=== PATIENT | male | born 1965 | race Caucasian/White ===

== ENCOUNTER 2017-04-20 19:16 | Emergency (ER) | payer MEDICARE, MEDICAID ==
[2017-04-20 20:08] VITALS: BP 158/108
[2017-04-20] MEDS ORDERED: Bacitracin Oint 1 GM U/D Packet TOP ONE (20:56)
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
== END 2017-04-20 21:45 | disposition home or self-care (01) ==
LOC: JP.ED 19:16
DX: H61.23 Impacted cerumen, bilateral (principal); S50.811A Abrasion of right forearm, initial encounter; I25.2 Old myocardial infarction; I10 Essential (primary) hypertension; I25.10 Atherosclerotic heart disease of native coronary artery without angina pectoris; E78.00 Pure hypercholesterolemia, unspecified; J45.909 Unspecified asthma, uncomplicated; Z95.5 Presence of coronary angioplasty implant and graft; Z79.82 Long term (current) use of aspirin; Z79.899 Other long term (current) drug therapy; X58.XXXA Exposure to other specified factors, initial encounter
CPT/HCPCS: 69209; 99283-25

== ENCOUNTER 2017-06-17 22:00 | Emergency (ER) | payer MEDICARE, MEDICAID ==
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
[2017-06-18 00:06] VITALS: BP 146/99
--- NOTE | 2017-06-19 09:13 | CR ---
Chest 1V Frontal HISTORY: pain COMPARISON: 01/10/2016 FINDINGS: Portable chest, 2216 hours. Lungs appear clear and normally aerated. Cardiomediastinal silhouette is within normal limits. No vas cular redistribution or pleural fluid can be seen. Bony structures and soft tissues are unremarkable. IMPRESSION: No acute chest abnormality or significant interval change is identified.
== END 2017-06-18 00:07 | disposition home or self-care (01) ==
LOC: JP.ED 22:00
DX: R07.89 Other chest pain (principal); I10 Essential (primary) hypertension; I25.2 Old myocardial infarction; I25.10 Atherosclerotic heart disease of native coronary artery without angina pectoris; E78.00 Pure hypercholesterolemia, unspecified; Z95.5 Presence of coronary angioplasty implant and graft; J45.909 Unspecified asthma, uncomplicated; Z79.82 Long term (current) use of aspirin
CPT/HCPCS: 36415; 71010; 71010-26; 80053; 84484; 85025; 93005; 93010; 99283; 99285-25

== ENCOUNTER 2017-11-29 00:48 | Emergency (ER) | payer MEDICARE, MEDICAID ==
[2017-11-29 01:31] VITALS: BP 161/83
[2017-11-29] MEDS ORDERED: Ketorolac 60 MG/2 ML SDV IM ONE (02:35)
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
--- NOTE | 2017-11-29 10:08 | CR ---
Chest 2V INDICATION: Left chest wall pain FINDINGS: Comparison 06/17/2017. No change. Negative chest.
== END 2017-11-29 03:27 | disposition home or self-care (01) ==
LOC: JP.ED 00:48
DX: R07.89 Other chest pain (principal); I25.2 Old myocardial infarction; Z87.891 Personal history of nicotine dependence; J45.909 Unspecified asthma, uncomplicated
CPT/HCPCS: 71046; 96372; 99283; 99285; J1885

== ENCOUNTER 2018-01-10 21:17 | Emergency (ER) | payer MEDICARE, MEDICAID ==
[2018-01-10 21:57] VITALS: BP 150/88
[2018-01-10] MEDS ORDERED: Ketorolac 60 MG/2 ML SDV IM ONE (22:28)
--- NOTE | 2018-01-10 22:39 | EDM.PDOC ---
ED HPI GENERAL MEDICAL PROBLEM - General Chief Complaint: General Stated Complaint: RIGHT SHOULDER NUMBNESS AND GOES INTO THE FINGERS Time Seen by Provider: 01/10/18 22:12 Source of Information: Reports: Patient History Limitations: Reports: No Limitations - History of Present Illness INITIAL COMMENTS - FREE TEXT/NARRATIVE: left fingers with numbness and tingling. left shoulder pain for the past few days. worried he has a pinched nerve in his neck. was seen by Chiropractor in Monday and next appointment of Monday. denies chest pain, shortness of breath, fever, chills or any other symptoms. Onset: Gradual Duration: Day(s): Location: Reports: Upper Extremity, Left (left scapula) Quality: Reports: Ache Severity: Mild Improves with: Reports: Rest Worsens with: Reports: None Associated Symptoms: Reports: No Other Symptoms - Related Data Allergies Allergy/AdvReac Type Severity Reaction Status Date / Time No Known Allergies Allergy Verified 11/29/17 01:22 Home Meds: Home Meds Albuterol Sulfate [Proair Hfa] 2 puff IH Q4H PRN 12/01/14 [History] Albuterol [Proventil] 2.5 mg NEB Q2H PRN 12/01/14 [History] Fluticasone Propionate [Flovent HFA 220 MCG] 2 puff IH BID 12/01/14 [History] Aspirin [Eder Chewable Aspirin] 81 mg PO QAM 10/03/15 [History] Metoprolol Tartrate [Lopressor] 12.5 mg PO BID 02/24/16 [History] atorvaSTATin [Lipitor] 10 mg PO BEDTIME 02/24/16 [History] Nitroglycerin [Nitrostat] 0.4 mg SL ASDIRECTED PRN 01/10/18 [History] Past Medical History HEENT History: Reports: Impaired Vision Cardiovascular History: Reports: CAD, High Cholesterol, Hypertension, [place], Stents Respiratory History: Reports: Asthma Genitourinary History: Reports: Urinary Incontinence Musculoskeletal History: Reports: Fracture Other Musculoskeletal History: right knee pain Neurological History: Reports: Concussion, Head Trauma Dermatologic History: Reports: Cellulitis - Infectious Disease History Infectious Disease History: Reports: Shingles - Past Surgical History Cardiovascular Surgical History: Reports: Coronary Artery Stent Musculoskeletal Surgical History: Reports: Arthroscopic Knee, Other (See Below) Other Musculoskeletal Surgeries/Procedures:: right pointer finger Social & Family History - Family History Family Medical History: Unobtainable - Tobacco Use Smoking Status *Q: Never Smoker - Caffeine Use Caffeine Use: Reports: Coffee - Recreational Drug Use Recreational Drug Use: No - Living Situation & Occupation Living situation: Reports: with Family (lives with family in yard, has a camper stays in at night.) ED ROS GENERAL - Review of Systems Review Of Systems: See Below Constitutional: Reports: No Symptoms HEENT: Reports: No Symptoms Respiratory: Reports: No Symptoms Cardiovascular: Reports: No Symptoms, Palpitations GI/Abdominal: Reports: No Symptoms Musculoskeletal: Reports: Shoulder Pain (feels numb), Arm Pain (feels numb,pain resolves with repositioning of arms) Skin: Reports: No Symptoms Neurological: Reports: No Symptoms Psychiatric: Reports: No Symptoms Hematologic/Lymphatic: Reports: No Symptoms Immunologic: Reports: No Symptoms ED EXAM, GENERAL - Physical Exam Exam: See Below Exam Limited By: No Limitations General Appearance: Alert, WD/WN, No Apparent Distress Ears: Normal External Exam Nose: Normal Inspection Neck: Normal Inspection, Supple, Non-Tender. No: Full Range of Motion (mild neck stiffness) Respiratory/Chest: No Respiratory Distress, Lungs Clear, Normal Breath Sounds, No Accessory Muscle Use, Chest Non-Tender Cardiovascular: Regular Rate, Rhythm, No Edema, No Murmur Back Exam: Normal Inspection, Full Range of Motion, NT Extremities: Normal Inspection, Normal Range of Motion, Non-Tender, Normal Capillary Refill, No Pedal Edema Neurological: Alert, Oriented, Normal Cognition, Normal Gait, No Motor/Sensory Deficits Psychiatric: Normal Affect, Normal Mood Skin Exam: Warm, Dry, Intact, Normal Color, No Rash Lymphatic: No Adenopathy Course - Vital Signs Last Recorded V/S: Last Vital Signs Temp 36.6 C 01/10/18 22:04 Pulse 85 01/10/18 22:04 Resp 16 01/10/18 22:04 BP 150/88 H 01/10/18 22:04 Pulse Ox 94 L 01/10/18 22:04 - Orders/Labs/Meds Orders: Active Orders 24 hr Category Date Time Status Cervical Spine 2V or 3V [CR] Stat Exams 01/10/18 22:27 Ordered Meds: Medications Discontinued Medications Generic Name Dose Route Start Last Admin Trade Name Freq PRN Reason Stop Dose Admin Ketorolac Tromethamine 60 mg 01/10/18 22:28 Toradol IM 01/10/18 22:29 ONETIME ONE - Radiology Interpretation Free Text/Narrative:: C-spine; DJD noted with bone spurs. - Re-Assessments/Exams Free Text/Narrative Re-Assessment/Exam: 01/10/18 22:43 given Toradol 60mg IM xray of C-spine to rule out DJD Departure - Departure Time of Disposition: 22:49 Disposition: Home, Self-Care 01 Condition: Good Clinical Impression: Muscle strain, Degenerative joint disease of cervical spine - Discharge Information Instructions: Muscle Strain Referrals: Bony Bone MD [Primary Care Provider] - Care Plan Goals: muscle strain/ Degenerative joint disease of neck -Toradol 60 mg im given in ER -Naprosen 500mg in morning and evening with food for 2 days, then as needed two times a day -Flexeril 10mg every 8 hours as needed for muscle spasm follow up with Primary Care or Chiropractor for recheck if not improved or symptoms worsen. - Problem List & Annotations (1) Muscle strain SNOMED Code(s): 08042047 Code(s): T14.8XXA - OTHER INJURY OF UNSPECIFIED BODY REGION, INITIAL ENCOUNTER Status: Acute Priority: Medium Current Visit: Yes - Problem List Review Problem List Initiated/Reviewed/Updated: Yes - My Orders Last 24 Hours: My Active Orders 01/10/18 22:27 Cervical Spine 2V or 3V [CR] Stat - Assessment/Plan Last 24 Hours: My Active Orders 01/10/18 22:27 Cervical Spine 2V or 3V [CR] Stat Plan: muscle strain/ degenerative joint disease of neck -Toradol 60 mg im given in ER -Naprosen 500mg in morning and evening with food for 2 days, then as needed two times a day -Flexeril 10mg every 8 hours as needed for muscle spasm follow up with Primary Care or Chiropractor for recheck if not improved or symptoms worsen.
--- NOTE | 2018-01-11 09:14 | CR ---
Cervical Spine 2V or 3V INDICATION: left shoulder and fingers numbness COMPARISON: 01/18/2011 FINDINGS: 3 views. Degenerative disc disease lower cervical spine increased slightly. No compression deformities or subluxations. No facet arthropathy. Overall alignment is anatomic. No prevertebral so ft tissue swelling. If symptoms persist, consider MRI.
== END 2018-01-10 23:05 | disposition home or self-care (01) ==
LOC: JP.ED 21:17
DX: M50.30 Other cervical disc degeneration, unspecified cervical region (principal); T14.8XXA Other injury of unspecified body region, initial encounter; I10 Essential (primary) hypertension; Z79.82 Long term (current) use of aspirin; X58.XXXA Exposure to other specified factors, initial encounter
CPT/HCPCS: 72040; 96372; 99284; J1885

== ENCOUNTER 2019-04-25 19:29 | Emergency (ER) | payer MEDICARE, MEDICAID ==
[2019-04-25 19:56] VITALS: BP 138/72
[2019-04-25] MEDS ORDERED: Sulfamethoxazole/Trimethoprim 800-160 MG Tab PO ONE (19:59)
--- NOTE | 2019-04-25 20:02 | EDM.PDOC ---
ED HPI GENERAL MEDICAL PROBLEM - General Chief Complaint: Skin Complaint Stated Complaint: SORE ON RT ARM Time Seen by Provider: 04/25/19 19:45 Source of Information: Reports: Patient History Limitations: Reports: No Limitations - History of Present Illness INITIAL COMMENTS - FREE TEXT/NARRATIVE: 53-year-old male with a persistent lesion on the left lateral arm for the last 3 weeks. It's erythematous, slightly painful and occasionally draining. He just got off work so came in to have it checked. No other lesions elsewhere, no other symptoms. Onset: Gradual Duration: Week(s): (3 weeks) Location: Reports: Upper Extremity, Left Associated Symptoms: Reports: No Other Symptoms Left upper Arm Pain Score (Numeric/FACES): 4 - Related Data Allergies Allergy/AdvReac Type Severity Reaction Status Date / Time No Known Allergies Allergy Verified 04/25/19 19:51 Home Meds: Home Meds Albuterol Sulfate [Proair Hfa] 2 puff IH Q4H PRN 12/01/14 [History] Albuterol [Proventil] 2.5 mg NEB Q2H PRN 12/01/14 [History] Fluticasone Propionate [Flovent HFA 220 MCG] 2 puff IH BID 12/01/14 [History] Aspirin [Eder Chewable Aspirin] 81 mg PO QAM 10/03/15 [History] Metoprolol Tartrate [Lopressor] 12.5 mg PO BID 02/24/16 [History] atorvaSTATin [Lipitor] 10 mg PO BEDTIME 02/24/16 [History] Nitroglycerin [Nitrostat] 0.4 mg SL ASDIRECTED PRN 01/10/18 [History] Codeine Phosphate/Guaifenesin [Guaifen-Codeine 100-10 mg/5 ml] 10 ml PO Q4H PRN 04/09/19 [History] Past Medical History HEENT History: Reports: Hard of Hearing, Impaired Vision 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 Cardiovascular History: Reports: CAD, High Cholesterol, Hypertension, [place], Stents Respiratory History: Reports: Asthma Genitourinary History: Reports: Urinary Incontinence Musculoskeletal History: Reports: Back Pain, Chronic, Fracture Other Musculoskeletal History: right knee pain Neurological History: Reports: Concussion, Head Trauma Dermatologic History: Reports: Cellulitis Other Dermatologic History: right ear red and swollen - Infectious Disease History Infectious Disease History: Reports: Chicken Pox - Past Surgical History Head Surgeries/Procedures: Reports: None HEENT Surgical History: Reports: None Cardiovascular Surgical History: Reports: Coronary Artery Stent Respiratory Surgical History: Reports: None Male Surgical History: Reports: None Neurological Surgical History: Reports: None Musculoskeletal Surgical History: Reports: Arthroscopic Knee, Other (See Below) Other Musculoskeletal Surgeries/Procedures:: right pointer finger Social & Family History - Family History Family Medical History: Unobtainable - Tobacco Use Smoking Status *Q: Never Smoker Second Hand Smoke Exposure: No - Caffeine Use Caffeine Use: Reports: None - Recreational Drug Use Recreational Drug Use: No - Living Situation & Occupation Living situation: Reports: with Family (lives with family in yard, has a camper stays in at night.) ED ROS GENERAL - Review of Systems Review Of Systems: See Below Constitutional: Denies: Fever Respiratory: Reports: No Symptoms GI/Abdominal: Reports: No Symptoms : Reports: No Symptoms Neurological: Reports: No Symptoms ED EXAM, SKIN/RASH Exam: See Below Exam Limited By: No Limitations General Appearance: Alert, No Apparent Distress Head: Atraumatic Respiratory/Chest: No Respiratory Distress Extremities: Other (The left arm is examined and has patches of erythema with a central 2 cm shallow ulceration that is currently dry and not draining on the left anterior arm near the antecubital area. It is slightly tender to palpation but not warm.) Course - Vital Signs Last Recorded V/S: Last Vital Signs Temp 96.6 F 04/25/19 19:55 Pulse 88 04/25/19 19:55 Resp 14 04/25/19 19:55 BP 138/72 04/25/19 19:55 Pulse Ox 97 04/25/19 19:55 - Orders/Labs/Meds Meds: Medications Discontinued Medications Generic Name Dose Route Start Last Admin Trade Name Freq PRN Reason Stop Dose Admin Trimethoprim/Sulfamethoxazole 1 tab 04/25/19 19:59 04/25/19 20:07 Septra Ds PO 04/25/19 20:00 1 tab ONETIME ONE Administration - Re-Assessments/Exams Free Text/Narrative Re-Assessment/Exam: 04/25/19 20:01 This patient has a persistent inflamed lesion on the left arm that may be MRSA, there is nothing to culture at this time. He'll be placed on Bactrim DS twice a day for the next 10 days but needs to recheck in the clinic next week if not improving, a biopsy will be needed. Departure - Departure Time of Disposition: 20:32 Disposition: Home, Self-Care 01 Clinical Impression: Cellulitis Qualifiers: Site of cellulitis: extremity Site of cellulitis of extremity: upper extremity Laterality: left Qualified Code(s): L03.114 - Cellulitis of left upper limb - Discharge Information Instructions: Cellulitis, Adult Referrals: Bony Bone MD [Primary Care Provider] - Forms: ED Department Discharge Care Plan Goals: Fill prescription for the antibiotic and take twice daily for at least a week. Keep the wound clean and covered and recheck in the clinic next week if not improving.
== END 2019-04-25 20:36 | disposition home or self-care (01) ==
LOC: JP.ED 19:29
DX: L03.114 Cellulitis of left upper limb (principal); I10 Essential (primary) hypertension; I25.2 Old myocardial infarction; E78.00 Pure hypercholesterolemia, unspecified; J45.909 Unspecified asthma, uncomplicated; Z79.899 Other long term (current) drug therapy; Z79.82 Long term (current) use of aspirin
CPT/HCPCS: 99282; A9270

== ENCOUNTER 2019-06-26 14:26 | Day surgery (SDC) | payer MEDICARE, MEDICAID ==
[2019-06-26] MEDS ORDERED: Sodium Chloride 0.9% 1,000 ML IV SCH ×2 (15:15→23:59)
[2019-06-26] MEDS ORDERED: BISACODYL 5 MG PO ONE ×2 (16:00→20:00)
[2019-06-26] MEDS ORDERED: atorvaSTATin 10 MG Tab (PTOM) PO SCH (17:00)
[2019-06-26] MEDS ORDERED: Polyethylene Glycol 3350 Powder 119 GM Bottle PO ONE (17:00)
[2019-06-26] MEDS ORDERED: POLYETHYLENE GLYCOL 238 GM PO ONE (17:00)
[2019-06-26] MEDS: Metoprolol Tartrate 25 MG Tab (PTOM) PO SCH (21:46)
[2019-06-27] MEDS ORDERED: fentaNYL 100 MCG/2 ML SDV ONE (08:30)
[2019-06-27] MEDS ORDERED: Midazolam 1 MG/ML 2 ML SDV ONE (08:30)
[2019-06-27] MEDS ORDERED: Propofol 200 MG/20 ML SDV ONE ×2 (08:31→09:42)
[2019-06-27] MEDS: Metoprolol Tartrate 25 MG Tab (PTOM) PO SCH (08:36)
[2019-06-27] MEDS ORDERED: Aspirin 81 MG Tab.Chew PO SCH (09:00)
[2019-06-27] MEDS ORDERED: Lactated Ringers 1,000 ML ONE (09:45)
[2019-06-27 11:37] VITALS: BP 111/74; PULSE 72
--- NOTE | 2019-06-27 13:01 | OR ---
DATE OF PROCEDURE: 06/27/2019 SURGEON: Evan Irizarry MD PROCEDURE: Colonoscopy. FINDINGS: Sigmoid colon polyp, approximately 2 cm, completely removed using hot snare forceps. COMPLICATIONS: None. CHECK EMBOSSER: None. ANESTHESIA: MAC. PREOPERATIVE DIAGNOSIS: Screening colonoscopy. POSTOPERATIVE DIAGNOSIS: Screening colonoscopy. RISKS: Risks, benefits, alternatives, and limitations including, but not limited to infection, bleeding, and perforation were explained to the patient, who wished to proceed. PROCEDURE IN DETAIL: The patient was placed in left lateral decubitus position. Digital rectal exam was performed without abnormality. The scope was introduced and advanced atraumatically to the ileocecal valve. The scope was brought back through the ascending, transverse, descending colon, and retroflexed. At 22 cm, a sessile-type polypoid lesion was identified. This was approximately 2 cm in size. This was first elevated using Angelica ink to whit and elevate the flat-type polyp. This was removed using the snare. No bleeding was noted after removal. No abnormalities on retroflexion. This did require multiple passes with the snare due to its size. The ink was also used to tap to the contralateral side of the colon. The patient tolerated the procedure well. Evan Irizarry MD /[id number]
== END 2019-06-27 12:30 | disposition home or self-care (01) ==
LOC: JP.MS 14:26 → JP.SDS 14:26 → UNDOADMOB 14:26 → JP.MS 14:26 → EDSTATUS 06-27 09:00 → UNDODISOB 06-27 12:30 → JP.SDS 06-27 12:30
PROVIDERS: ATTEND Surgery
DX: Z12.11 Encounter for screening for malignant neoplasm of colon (principal); D12.5 Benign neoplasm of sigmoid colon; E78.5 Hyperlipidemia, unspecified; I25.2 Old myocardial infarction; G47.33 Obstructive sleep apnea (adult) (pediatric); Z95.5 Presence of coronary angioplasty implant and graft
CPT/HCPCS: 45381; 45385; A9270; J2250; J2704; J3010; J7030; J7120

== ENCOUNTER 2019-07-16 20:03 | Observation (INO) | payer MEDICARE, MEDICAID ==
[2019-07-16] MEDS ORDERED: Morphine 4 MG/ML Syringe IVPUSH ONE (20:23)
--- NOTE | 2019-07-16 20:23 | EDM.PDOC ---
ED HPI GENERAL MEDICAL PROBLEM - General Chief Complaint: Chest Pain Stated Complaint: [facility] Time Seen by Provider: 07/16/19 20:10 Source of Information: Reports: Patient, EMS, Old Records History Limitations: Reports: No Limitations - History of Present Illness INITIAL COMMENTS - FREE TEXT/NARRATIVE: 53 yo male with known CAD walked into his shed at home and developed chest pain , mild SOB and a couple of syncopal spells not associated with injury. He lives alone. EMS responded and gave him ASA and SL NTG for several doses that reduced , but did not eliminate his sx's. Here on arrival his pain is still 3/10. Says it feels like his pain when he had his cardiac events. Did not miss any of his meds. Onset: Today Onset Date: 07/16/19 Onset Time: 16:00 Duration: Hour(s): (4+), Improving (after NTG) Location: Reports: Chest Quality: Reports: Pressure Severity: Moderate Improves with: Reports: Medication (NTG) Worsens with: Reports: Other (unknown) Context: Reports: Other (see HPI) Associated Symptoms: Reports: Chest Pain, Shortness of Breath (minimal). Denies : Cough, Diaphoresis, Fever/Chills, Nausea/Vomiting Treatments IN HOME TUTOR: Reports: Aspirin, Nitroglycerin chest Pain Score (Numeric/FACES): 3 - Related Data Allergies Allergy/AdvReac Type Severity Reaction Status Date / Time No Known Allergies Allergy Verified 07/16/19 20:08 Home Meds: Home Meds Albuterol Sulfate [Proair Hfa] 2 puff IH Q4H PRN 12/01/14 [History] Albuterol [Proventil] 2.5 mg NEB Q2H PRN 12/01/14 [History] Fluticasone Propionate [Flovent HFA 220 MCG] 2 puff IH BID PRN 12/01/14 [History ] Aspirin [Eder Chewable Aspirin] 81 mg PO QAM 10/03/15 [History] Metoprolol Tartrate [Lopressor] 12.5 mg PO BID 02/24/16 [History] atorvaSTATin [Lipitor] 10 mg PO BEDTIME 02/24/16 [History] Nitroglycerin [Nitrostat] 0.4 mg SL ASDIRECTED PRN 01/10/18 [History] Codeine Phosphate/Guaifenesin [Guaifen-Codeine 100-10 mg/5 ml] 10 ml PO Q4H PRN 04/09/19 [History] Past Medical History HEENT History: Reports: Hard of Hearing, Impaired Vision 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 Cardiovascular History: Reports: CAD, High Cholesterol, Hypertension, [place], Stents Respiratory History: Reports: Asthma Genitourinary History: Reports: Urinary Incontinence Musculoskeletal History: Reports: Back Pain, Chronic, Fracture Other Musculoskeletal History: right knee pain Neurological History: Reports: Concussion, Head Trauma Dermatologic History: Reports: Cellulitis Other Dermatologic History: right ear red and swollen - Infectious Disease History Infectious Disease History: Reports: Chicken Pox - Past Surgical History Head Surgeries/Procedures: Reports: None HEENT Surgical History: Reports: None Cardiovascular Surgical History: Reports: Coronary Artery Stent Respiratory Surgical History: Reports: None Male Surgical History: Reports: None Neurological Surgical History: Reports: None Musculoskeletal Surgical History: Reports: Arthroscopic Knee, Other (See Below) Other Musculoskeletal Surgeries/Procedures:: right pointer finger Social & Family History - Family History Family Medical History: Noncontributory - Tobacco Use Smoking Status *Q: Never Smoker - Caffeine Use Caffeine Use: Reports: Coffee - Living Situation & Occupation Living situation: Reports: with Family (lives with family in yard, has a camper stays in at night.) ED ROS GENERAL - Review of Systems Review Of Systems: See Below Constitutional: Reports: No Symptoms HEENT: Reports: No Symptoms Respiratory: Reports: Shortness of Breath (mild). Denies: Wheezing, Pleuritic Chest Pain, Cough, Sputum, Hemoptysis Cardiovascular: Reports: Chest Pain, Lightheadedness, Syncope (x 2) Endocrine: Reports: No Symptoms GI/Abdominal: Reports: No Symptoms : Reports: No Symptoms Musculoskeletal: Reports: No Symptoms Skin: Reports: No Symptoms Neurological: Reports: No Symptoms Psychiatric: Reports: No Symptoms ED EXAM, GENERAL - Physical Exam Exam: See Below Exam Limited By: No Limitations General Appearance: Alert, WD/WN, No Apparent Distress Eye Exam: Bilateral Eye: Normal Inspection Ears: Normal External Exam, Normal Canal, Hearing Grossly Normal Ear Exam: Bilateral Ear: Auricle Normal, Canal Normal Nose: Normal Inspection, No Blood Throat/Mouth: Normal Inspection, Normal Lips, Normal Oropharynx, Normal Voice, No Airway Compromise Head: Atraumatic, Normocephalic Neck: Normal Inspection, Supple Respiratory/Chest: No Respiratory Distress, Lungs Clear, Normal Breath Sounds, No Accessory Muscle Use. No: Chest Non-Tender (chest mildly tender with palpation. ) Cardiovascular: Regular Rate, Rhythm, No Edema GI/Abdominal: Normal Bowel Sounds, Soft, Non-Tender, No Distention Extremities: Normal Inspection, Normal Range of Motion, Non-Tender, No Pedal Edema Neurological: Alert, Oriented, CN II-XII Intact, Normal Cognition, No Motor/ Sensory Deficits Psychiatric: Normal Affect, Normal Mood Skin Exam: Warm, Dry, Intact, Normal Color, No Rash EKG INTERPRETATION EKG Date: 07/16/19 Time: 21:00 Rhythm: NSR Rate (Beats/Min): 71 Welcome: Normal P-Wave: Present QRS: Normal ST-T: Normal QT: Normal Comparison: No Change Course - Vital Signs Last Recorded V/S: Last Vital Signs Temp 36.7 C 07/16/19 20:04 Pulse 89 07/16/19 22:43 Resp 16 07/16/19 20:04 BP 139/79 07/16/19 22:43 Pulse Ox 94 L 07/16/19 20:04 - Orders/Labs/Meds Orders: Active Orders 24 hr Category Date Time Status Cardiac Monitoring [RC] .As Directed Care 07/16/19 20:18 Active EKG Documentation Completion [RC] ASDIRECTED Care 07/16/19 20:18 Active EKG 12 Lead [EK] Routine Ther 07/16/19 20:18 Ordered Labs: Laboratory Tests 07/16/19 07/16/19 07/16/19 Range/Units 20:28 20:28 20:28 WBC 6.4 (4.5-11.0) K/uL RBC 4.68 (4.30-5.90) M/uL Hgb 13.1 (12.0-15.0) g/dL Hct 40.5 (40.0-54.0) % MCV 87 (80-98) fL MCH 28 (27-31) pg MCHC 32 (32-36) % Plt Count 319 (150-400) K/uL D-Dimer, Quantitative < 100 (0.0-400.0) ng/mL Sodium 143 (140-148) mmol/L Potassium 3.4 L (3.6-5.2) mmol/L Chloride 106 (100-108) mmol/L Carbon Dioxide 27 (21-32) mmol/L Anion Gap 13.4 (5.0-14.0) mmol/L BUN 8 (7-18) mg/dL Creatinine 0.9 (0.8-1.3) mg/dL Est Cr Clr Drug Dosing 106.58 mL/min Estimated GFR (MDRD) > 60 (>60) Glucose 119 H (74-106) mg/dL Calcium 9.0 (8.5-10.1) mg/dL Troponin I (0.000-0.056) ng/mL Urine Color (YELLOW) Urine Appearance (CLEAR) Urine pH (5.0-8.0) Ur Specific Early (1.008-1.030) Urine Protein (NEGATIVE) mg/dL Urine Glucose (UA) (NEGATIVE) mg/dL Urine Ketones (NEGATIVE) mg/dL Urine Occult Blood (NEGATIVE) Urine Nitrite (NEGATIVE) Urine Bilirubin (NEGATIVE) Urine Urobilinogen (0.2-1.0) EU/dL Ur Leukocyte Esterase (NEGATIVE) Urine RBC (0-5) Urine WBC (0-5) Ur Epithelial Cells Amorphous Sediment Urine Bacteria Urine Mucus 07/16/19 07/16/19 07/16/19 Range/Units 20:28 20:58 22:30 WBC (4.5-11.0) K/uL RBC (4.30-5.90) M/uL Hgb (12.0-15.0) g/dL Hct (40.0-54.0) % MCV (80-98) fL MCH (27-31) pg MCHC (32-36) % Plt Count (150-400) K/uL D-Dimer, Quantitative (0.0-400.0) ng/mL Sodium (140-148) mmol/L Potassium (3.6-5.2) mmol/L Chloride (100-108) mmol/L Carbon Dioxide (21-32) mmol/L Anion Gap (5.0-14.0) mmol/L BUN (7-18) mg/dL Creatinine (0.8-1.3) mg/dL Est Cr Clr Drug Dosing mL/min Estimated GFR (MDRD) (>60) Glucose (74-106) mg/dL Calcium (8.5-10.1) mg/dL Troponin I < 0.017 < 0.017 (0.000-0.056) ng/mL Urine Color Yellow (YELLOW) Urine Appearance Clear (CLEAR) Urine pH 6.5 (5.0-8.0) Ur Specific Early 1.010 (1.008-1.030) Urine Protein Negative (NEGATIVE) mg/dL Urine Glucose (UA) Negative (NEGATIVE) mg/dL Urine Ketones Negative (NEGATIVE) mg/dL Urine Occult Blood Small H (NEGATIVE) Urine Nitrite Negative (NEGATIVE) Urine Bilirubin Negative (NEGATIVE) Urine Urobilinogen 0.2 (0.2-1.0) EU/dL Ur Leukocyte Esterase Negative (NEGATIVE) Urine RBC 0-5 (0-5) Urine WBC Not seen (0-5) Ur Epithelial Cells Rare Amorphous Sediment Not seen Urine Bacteria Rare Urine Mucus Not seen Meds: Medications Discontinued Medications Generic Name Dose Route Start Last Admin Trade Name Freq PRN Reason Stop Dose Admin Isosorbide Mononitrate 30 mg 07/16/19 22:25 07/16/19 22:43 Imdur PO 07/16/19 22:26 30 mg ONETIME ONE Administration Metoprolol Tartrate 25 mg 07/16/19 22:25 07/16/19 22:43 Lopressor PO 07/16/19 22:26 25 mg ONETIME ONE Administration Morphine Sulfate 4 mg 07/16/19 20:23 07/16/19 20:38 Morphine IVPUSH 07/16/19 20:24 4 mg ONETIME ONE Administration Potassium Chloride 20 meq 07/16/19 21:15 07/16/19 21:24 Potassium Chloride PO 07/16/19 21:16 20 meq ONETIME ONE Administration - Re-Assessments/Exams Free Text/Narrative Re-Assessment/Exam: 07/16/19 21:18 Checked on patient after all his labs came back, is asymptomatic now. Free Text/Narrative Re-Assessment/Exam: 07/16/19 23:28 BP improved to 120's after metoprolol and isosorbide mononitrate. Still have CP 2/10 with normal Trop's x 2 and a normal EKG. Will call [facility] to see about admission for further work up([id number]) Departure - Departure Time of Disposition: 23:45 Disposition: Admitted As Inpatient 68 Condition: Fair Clinical Impression: Chest pain Qualifiers: Chest pain type: unspecified Qualified Code(s): R07.9 - Chest pain, unspecified Syncope Qualifiers: Syncope type: unspecified Qualified Code(s): R55 - Syncope and collapse Referrals: PCP,None [Primary Care Provider] - Forms: ED Department Discharge - My Orders Last 24 Hours: My Active Orders 07/16/19 20:18 Cardiac Monitoring [RC] .As Directed EKG Documentation Completion [RC] ASDIRECTED EKG 12 Lead [EK] Routine - Assessment/Plan Last 24 Hours: My Active Orders 07/16/19 20:18 Cardiac Monitoring [RC] .As Directed EKG Documentation Completion [RC] ASDIRECTED EKG 12 Lead [EK] Routine
[2019-07-16] MEDS ORDERED: Potassium Chloride 10 MEQ Cap.ER PO ONE (21:15)
[2019-07-16] MEDS ORDERED: Metoprolol Tartrate 25 MG Tab PO ONE (22:25)
[2019-07-16] MEDS ORDERED: Isosorbide Mononitrate 30 MG Tab.ER PO ONE (22:25)
--- NOTE | 2019-07-17 00:17 | PCM.HP.2 ---
H&P History of Present Illness - General Date of Service: 07/17/19 Admit Problem/Dx: Admission Diagnosis/Problem Admission Diagnosis/Problem Chest pain Source of Information: Patient, Provider, RN Notes Reviewed History Limitations: Reports: No Limitations - History of Present Illness Initial Comments - Free Text/Narative: Mr. Melendrez is a 53-year-old gentleman who was admitted through the emergency department observation status for further evaluation and management of syncope and chest pain. Mr. Melendrez has a known history of coronary artery disease, status post previous angioplasty and stent placement. He developed symptoms of chest pain and pressure at approximately 5 PM this evening. As he continued to go about his usual activities the pain increased in intensity so he took a first and then a second nitroglycerin. After the second nitroglycerin he began to feel somewhat weak with lightheadedness, diaphoresis, and mild nausea. He attempted to stand up and then experienced a syncopal episode. As he attempted to get up from the first syncopal episode he experienced a second a couple episode. EMS services were activated and he was brought into the hospital after receiving further nitroglycerin in the ambulance. He arrived here approximately 9 PM and was given 2 further nitroglycerin as well as Dilaudid, chest pain improved significantly with those interventions. 2 troponin levels have been obtained 2 hours apart and both are within normal range. EKG shows no acute ST segment changes. He reports a history of hypertension, hypercholesterolemia, and a positive family history of her neck artery disease. He denies a personal history of tobacco use or diabetes mellitus. Calculated HEART score is 4. chest Pain Score (Numeric/FACES): 3 - Related Data Allergies/Adverse Reactions: Allergies Allergy/AdvReac Type Severity Reaction Status Date / Time No Known Allergies Allergy Verified 07/16/19 20:08 Home Medications: Home Meds Albuterol Sulfate [Proair Hfa] 2 puff IH Q4H PRN 12/01/14 [History] Albuterol [Proventil] 2.5 mg NEB Q2H PRN 12/01/14 [History] Fluticasone Propionate [Flovent HFA 220 MCG] 2 puff IH BID PRN 12/01/14 [History ] Aspirin [Eder Chewable Aspirin] 81 mg PO QAM 10/03/15 [History] Metoprolol Tartrate [Lopressor] 12.5 mg PO BID 02/24/16 [History] atorvaSTATin [Lipitor] 10 mg PO BEDTIME 02/24/16 [History] Nitroglycerin [Nitrostat] 0.4 mg SL ASDIRECTED PRN 01/10/18 [History] Codeine Phosphate/Guaifenesin [Guaifen-Codeine 100-10 mg/5 ml] 10 ml PO Q4H PRN 04/09/19 [History] Past Medical History HEENT History: Reports: Hard of Hearing, Impaired Vision 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 Cardiovascular History: Reports: CAD, High Cholesterol, Hypertension, NE, Stents Respiratory History: Reports: Asthma Genitourinary History: Reports: Urinary Incontinence Musculoskeletal History: Reports: Back Pain, Chronic, Fracture Other Musculoskeletal History: right knee pain Neurological History: Reports: Concussion, Head Trauma Dermatologic History: Reports: Cellulitis Other Dermatologic History: right ear red and swollen - Infectious Disease History Infectious Disease History: Reports: Chicken Pox - Past Surgical History Head Surgeries/Procedures: Reports: None HEENT Surgical History: Reports: None Cardiovascular Surgical History: Reports: Coronary Artery Stent Respiratory Surgical History: Reports: None Male Surgical History: Reports: None Neurological Surgical History: Reports: None Musculoskeletal Surgical History: Reports: Arthroscopic Knee, Other (See Below) Other Musculoskeletal Surgeries/Procedures:: right pointer finger Social & Family History - Family History Family Medical History: Noncontributory - Tobacco Use Smoking Status *Q: Never Smoker - Caffeine Use Caffeine Use: Reports: Coffee - Living Situation & Occupation Living situation: Reports: with Family (lives with family in yard, has a camper stays in at night.) H&P Review of Systems - Review of Systems: Review Of Systems: See Below General: Reports: Diaphoresis. Denies: Fever, Chills, Malaise, Weakness HEENT: Reports: No Symptoms Pulmonary: Reports: No Symptoms Cardiovascular: Reports: Chest Pain, Syncope. Denies: Palpitations, Dyspnea on Exertion, Orthopnea, PND, Edema Gastrointestinal: Reports: Nausea. Denies: Abdominal Pain, Constipation, Diarrhea, Difficulty Swallowing, Distension, Vomiting Genitourinary: Reports: No Symptoms Musculoskeletal: Reports: No Symptoms Skin: Reports: No Symptoms Psychiatric: Reports: No Symptoms Neurological: Reports: No Symptoms Hematologic/Lymphatic: Reports: No Symptoms Immunologic: Reports: No Symptoms Exam - Exam Exam: See Below - Vital Signs Vital Signs: Last Vital Signs Temp 98.1 F 07/16/19 20:04 Pulse 65 07/16/19 23:10 Resp 18 07/16/19 23:10 BP 125/72 07/16/19 23:10 Pulse Ox 94 L 07/16/19 20:04 Weight: 208 lb - Exam Quality Assessment: DVT Prophylaxis General: Alert, Oriented, Cooperative, Mild Distress HEENT: Conjunctiva Clear, Hearing Intact, Mucosa Moist & [place], Normal Nasal Septum, Posterior Pharynx Clear, Pupils Equal Neck: Supple, Trachea Midline, +2 Carotid Pulse wo Bruit Lungs: Clear to Auscultation, Normal Respiratory Effort Cardiovascular: Regular Rate, Regular Rhythm, Normal S1, Normal S2. No: Systolic Murmur, Diastolic Murmur GI/Abdominal Exam: Soft, Non-Tender, No Organomegaly, No Distention Back Exam: Normal Inspection, Full Range of Motion Extremities: Non-Tender, No Pedal Edema Skin: Warm, Dry, Intact Neurological: Cranial Nerves Intact, Strength Equal Bilateral, Normal Speech, Normal Tone, Sensation Intact. No: Focal Deficit Neuro Extensive - Mental Status: Alert, Oriented x3, Normal Mood/Affect, Normal Cognition, Memory Intact - Patient Data Lab Results Last 24 hrs: Laboratory Results - last 24 hr 07/16/19 07/16/19 07/16/19 Range/Units 20:28 20:28 20:28 WBC 6.4 (4.5-11.0) K/uL RBC 4.68 (4.30-5.90) M/uL Hgb 13.1 (12.0-15.0) g/dL Hct 40.5 (40.0-54.0) % MCV 87 (80-98) fL MCH 28 (27-31) pg MCHC 32 (32-36) % Plt Count 319 (150-400) K/uL D-Dimer, Quantitative < 100 (0.0-400.0) ng/mL Sodium 143 (140-148) mmol/L Potassium 3.4 L (3.6-5.2) mmol/L Chloride 106 (100-108) mmol/L Carbon Dioxide 27 (21-32) mmol/L Anion Gap 13.4 (5.0-14.0) mmol/L BUN 8 (7-18) mg/dL Creatinine 0.9 (0.8-1.3) mg/dL Est Cr Clr Drug Dosing 106.58 mL/min Estimated GFR (MDRD) > 60 (>60) Glucose 119 H (74-106) mg/dL Calcium 9.0 (8.5-10.1) mg/dL Troponin I (0.000-0.056) ng/mL Urine Color (YELLOW) Urine Appearance (CLEAR) Urine pH (5.0-8.0) Ur Specific [place] (1.008-1.030) Urine Protein (NEGATIVE) mg/dL Urine Glucose (UA) (NEGATIVE) mg/dL Urine Ketones (NEGATIVE) mg/dL Urine Occult Blood (NEGATIVE) Urine Nitrite (NEGATIVE) Urine Bilirubin (NEGATIVE) Urine Urobilinogen (0.2-1.0) EU/dL Ur Leukocyte Esterase (NEGATIVE) Urine RBC (0-5) Urine WBC (0-5) Ur Epithelial Cells Amorphous Sediment Urine Bacteria Urine Mucus 07/16/19 07/16/19 07/16/19 Range/Units 20:28 20:58 22:30 WBC (4.5-11.0) K/uL RBC (4.30-5.90) M/uL Hgb (12.0-15.0) g/dL Hct (40.0-54.0) % MCV (80-98) fL MCH (27-31) pg MCHC (32-36) % Plt Count (150-400) K/uL D-Dimer, Quantitative (0.0-400.0) ng/mL Sodium (140-148) mmol/L Potassium (3.6-5.2) mmol/L Chloride (100-108) mmol/L Carbon Dioxide (21-32) mmol/L Anion Gap (5.0-14.0) mmol/L BUN (7-18) mg/dL Creatinine (0.8-1.3) mg/dL Est Cr Clr Drug Dosing mL/min Estimated GFR (MDRD) (>60) Glucose (74-106) mg/dL Calcium (8.5-10.1) mg/dL Troponin I < 0.017 < 0.017 (0.000-0.056) ng/mL Urine Color Yellow (YELLOW) Urine Appearance Clear (CLEAR) Urine pH 6.5 (5.0-8.0) Ur Specific [place] 1.010 (1.008-1.030) Urine Protein Negative (NEGATIVE) mg/dL Urine Glucose (UA) Negative (NEGATIVE) mg/dL Urine Ketones Negative (NEGATIVE) mg/dL Urine Occult Blood Small H (NEGATIVE) Urine Nitrite Negative (NEGATIVE) Urine Bilirubin Negative (NEGATIVE) Urine Urobilinogen 0.2 (0.2-1.0) EU/dL Ur Leukocyte Esterase Negative (NEGATIVE) Urine RBC 0-5 (0-5) Urine WBC Not seen (0-5) Ur Epithelial Cells Rare Amorphous Sediment Not seen Urine Bacteria Rare Urine Mucus Not seen Result Diagrams: 07/16/19 20:28 07/16/19 20:28 *Q Meaningful Use (ADM) - VTE Risk Assess *Q Each Risk Factor Represents 1 Point: Age 41 - 59 years, Obesity ( BMI > 25 kg/m2 ) Total Score 1 Point Risk Factors: 2 Each Risk Factor Represents 2 Points: None Total Score 2 Point Risk Factors: 0 Each Risk Factor Represents 3 Points: None Total Score 3 Point Risk Factors: 0 Each Risk Factor Represents 5 Points: None Total Score 5 Point Risk Factors: 0 Venous Thromboembolism Risk Factor Score *Q: 2 Problem List Initiated/Reviewed/Updated: Yes Orders Last 24hrs: Active Orders 24 hr Category Date Time Status Patient Status Manage Transfer [TRANSFER] Routine ADT 07/17/19 00:10 Ordered Cardiac Monitoring [RC] .As Directed Care 07/16/19 20:18 Active EKG Documentation Completion [RC] ASDIRECTED Care 07/16/19 20:18 Active Resuscitation Status Routine Resus Stat 07/17/19 00:12 Ordered EKG 12 Lead [EK] Routine Ther 07/16/19 20:18 Ordered Assessment/Plan Comment:: ASSESSMENT AND PLAN CHEST PAIN-he has a known history of coronary artery disease, status post previous angioplasty and stent placement. He experienced approximately 4 hours of continuous chest pain earlier this evening. EKG shows no acute ST segment changes and his first 2 troponin levels are within normal range. Calculated HEART score is 4. -Serial troponin levels -Plan for outpatient Lexiscan Myoview study VAGALLY MEDIATED SYNCOPE-exacerbated by nitroglycerin -Cardiac monitoring -Orthostatic vital signs MAINTENANCE ISSUES -DVT prophylaxis; Lovenox 40 mg subcutaneous daily -GI prophylaxis; Protonix 40 mg by mouth daily -Izquierdo catheter; not indicated -Nutrition; 2 g sodium diet -Nicotine dependence; not required CODE STATUS-FULL CODE ADMISSION STATUS-this patient will be admitted to observation status, expect no more than a one night hospital stay for evaluation and management of problems as outlined above. DISPOSITION-anticipate discharge to home after the hospital stay. PRIMARY CARE PROVIDER-Dr. Bone - Mortality Measure Prognosis:: Good
[2019-07-17] MEDS ORDERED: Sodium Chloride 0.9% 10 ML Syringe FLUSH PRN (00:45)
[2019-07-17] MEDS ORDERED: Morphine 2 MG/ML Syringe IVPUSH PRN (00:45)
[2019-07-17] MEDS ORDERED: Acetaminophen 325 MG Tab PO PRN (00:45)
[2019-07-17] MEDS ORDERED: Polyethylene Glycol 3350 Powder 17 GM Packet PO PRN (00:45)
[2019-07-17] MEDS ORDERED: Nitroglycerin 0.4 MG Tab.SL SL PRN (00:45)
[2019-07-17] MEDS ORDERED: Ondansetron 4 MG/2 ML SDV IV PRN (00:45)
[2019-07-17] MEDS ORDERED: Albuterol 0.083% 2.5 MG/3 ML Neb Soln NEB PRN (00:45)
[2019-07-17] MEDS ORDERED: Mometasone Furoate HFA 200 mcg/Puff 13 GM Inhaler INH PRN (00:45)
[2019-07-17] MEDS ORDERED: Enoxaparin 40 MG/0.4 ML Syringe SUBCUT SCH (01:00)
[2019-07-17] MEDS ORDERED: Pantoprazole 40 MG Tab.CR PO SCH (07:30)
[2019-07-17] MEDS ORDERED: ASPIRIN 81 MG PO SCH (09:00)
[2019-07-17] MEDS ORDERED: METOPROLOL TARTRATE 25 MG PO SCH (09:00)
--- NOTE | 2019-07-17 10:01 | PCM.DCSUM1 ---
Discharge Summary - Hospital Course Brief History: Mr. Melendrez is a 53-year-old gentleman who was admitted through the emergency department with syncope and chest pain. - Discharge Data Discharge Date: 07/17/19 Discharge Disposition: Home, Self-Care 01 Condition: Fair - Referral to Home Health Primary Care Physician: PCP None - Discharge Diagnosis/Problem(s) (1) Chest pain SNOMED Code(s): 86760470 ICD Code: R07.9 - CHEST PAIN, UNSPECIFIED Status: Acute Current Visit: Yes Qualifiers: Chest pain type: unspecified Qualified Code(s): R07.9 - Chest pain, unspecified (2) Syncope SNOMED Code(s): 615073251 ICD Code: R55 - SYNCOPE AND COLLAPSE Status: Acute Current Visit: Yes Qualifiers: Syncope type: unspecified Qualified Code(s): R55 - Syncope and collapse (3) CAD (coronary artery disease) SNOMED Code(s): 15026560 ICD Code: I25.10 - ATHSCL HEART DISEASE OF CIRCLE CORONARY ARTERY W/O ANG PCTRS Status: Chronic Current Visit: No - Patient Summary/Data Hospital Course: Mr. Melendrez is a 53-year-old gentleman who was admitted through the emergency department observation status for further evaluation and management of syncope and chest pain. Mr. Melendrez has a known history of coronary artery disease, status post previous angioplasty and stent placement. He developed symptoms of chest pain and pressure at approximately 5 PM on the evening of admission. As he continued to go about his usual activities the pain increased in intensity so he took a first and then a second nitroglycerin. After the second nitroglycerin he began to feel somewhat weak with lightheadedness, diaphoresis, and mild nausea. He attempted to stand up and then experienced a syncopal episode. As he attempted to get up from the first syncopal episode he experienced a second a couple episode. EMS services were activated and he was brought into the hospital after receiving further nitroglycerin in the ambulance. He arrived here approximately 9 PM and was given 2 further nitroglycerin as well as Dilaudid, chest pain improved significantly with those interventions. 2 troponin levels have been obtained 2 hours apart and both are within normal range. EKG shows no acute ST segment changes. He reports a history of hypertension, hypercholesterolemia, and a positive family history of her neck artery disease. He denies a personal history of tobacco use or diabetes mellitus. Calculated HEART score is 4. He was admitted to observation status and placed on cardiac monitoring. He had no further episodes of chest pain or pressure, follow-up troponin level was within normal range. On the morning of discharge he ate breakfast and ambulated in the hallways without symptoms of chest pain. He will be discharged on light activity only until he has seen Dr. Bone for follow-up. Exercise Myoview study will be scheduled for July 22 and follow-up with Dr. Bone within one week. Activity will be light and he will resume his usual heart healthy diet. He is instructed to return to the emergency department if he notes recurrent symptoms of chest pain or pressure. - Patient Instructions Diet: Heart Healthy Diet Activity: As Tolerated Other/Special Instructions: Exercise Myoview study Jun.22, FU appt Dr. Bone w/ in 1 week - Discharge Plan *PRESCRIPTION DRUG MONITORING PROGRAM REVIEWED*: Not Applicable *COPY OF PRESCRIPTION DRUG MONITORING REPORT IN PATIENT PARISH: Not Applicable Prescriptions/Med Rec: Metoprolol Tartrate [Lopressor] 25 mg PO BID #60 tablet Home Medications: Home Meds Albuterol Sulfate [Proair Hfa] 2 puff IH Q4H PRN 12/01/14 [History] Albuterol [Proventil] 2.5 mg NEB Q2H PRN 12/01/14 [History] Fluticasone Propionate [Flovent HFA 220 MCG] 2 puff IH BID PRN 12/01/14 [History ] Aspirin [Eder Chewable Aspirin] 81 mg PO QAM 10/03/15 [History] atorvaSTATin [Lipitor] 10 mg PO BEDTIME 02/24/16 [History] Nitroglycerin [Nitrostat] 0.4 mg SL ASDIRECTED PRN 01/10/18 [History] Codeine Phosphate/Guaifenesin [Guaifen-Codeine 100-10 mg/5 ml] 10 ml PO Q4H PRN 04/09/19 [History] Metoprolol Tartrate [Lopressor] 25 mg PO BID #60 tablet 07/17/19 [Rx] Referrals: Bony Bone MD [Physician] - - Discharge Summary/Plan Comment DC Time >30 min.: No - Patient Data Vitals - Most Recent: Last Vital Signs Temp 97.8 F 07/17/19 01:15 Pulse 63 07/17/19 00:25 Resp 14 07/17/19 06:00 BP 110/54 L 07/17/19 06:00 Pulse Ox 90 L 07/17/19 06:00 Orthostatic Blood Pressure [ 117/72 Standing] Orthostatic Blood Pressure [ 113/61 Sitting] Orthostatic Blood Pressure [ 110/54 Supine] Weight - Most Recent: 208 lb Lab Results - Last 24 hrs: Laboratory Results - last 24 hr 07/16/19 07/16/19 07/16/19 Range/Units 20:28 20:28 20:28 WBC 6.4 (4.5-11.0) K/uL RBC 4.68 (4.30-5.90) M/uL Hgb 13.1 (12.0-15.0) g/dL Hct 40.5 (40.0-54.0) % MCV 87 (80-98) fL MCH 28 (27-31) pg MCHC 32 (32-36) % Plt Count 319 (150-400) K/uL D-Dimer, Quantitative < 100 (0.0-400.0) ng/mL Sodium 143 (140-148) mmol/L Potassium 3.4 L (3.6-5.2) mmol/L Chloride 106 (100-108) mmol/L Carbon Dioxide 27 (21-32) mmol/L Anion Gap 13.4 (5.0-14.0) mmol/L BUN 8 (7-18) mg/dL Creatinine 0.9 (0.8-1.3) mg/dL Est Cr Clr Drug Dosing 106.58 mL/min Estimated GFR (MDRD) > 60 (>60) Glucose 119 H (74-106) mg/dL Calcium 9.0 (8.5-10.1) mg/dL Magnesium (1.8-2.4) mg/dL Troponin I (0.000-0.056) ng/mL Urine Color (YELLOW) Urine Appearance (CLEAR) Urine pH (5.0-8.0) Ur Specific [place] (1.008-1.030) Urine Protein (NEGATIVE) mg/dL Urine Glucose (UA) (NEGATIVE) mg/dL Urine Ketones (NEGATIVE) mg/dL Urine Occult Blood (NEGATIVE) Urine Nitrite (NEGATIVE) Urine Bilirubin (NEGATIVE) Urine Urobilinogen (0.2-1.0) EU/dL Ur Leukocyte Esterase (NEGATIVE) Urine RBC (0-5) Urine WBC (0-5) Ur Epithelial Cells Amorphous Sediment Urine Bacteria Urine Mucus 07/16/19 07/16/19 07/16/19 Range/Units 20:28 20:58 22:30 WBC (4.5-11.0) K/uL RBC (4.30-5.90) M/uL Hgb (12.0-15.0) g/dL Hct (40.0-54.0) % MCV (80-98) fL MCH (27-31) pg MCHC (32-36) % Plt Count (150-400) K/uL D-Dimer, Quantitative (0.0-400.0) ng/mL Sodium (140-148) mmol/L Potassium (3.6-5.2) mmol/L Chloride (100-108) mmol/L Carbon Dioxide (21-32) mmol/L Anion Gap (5.0-14.0) mmol/L BUN (7-18) mg/dL Creatinine (0.8-1.3) mg/dL Est Cr Clr Drug Dosing mL/min Estimated GFR (MDRD) (>60) Glucose (74-106) mg/dL Calcium (8.5-10.1) mg/dL Magnesium (1.8-2.4) mg/dL Troponin I < 0.017 < 0.017 (0.000-0.056) ng/mL Urine Color Yellow (YELLOW) Urine Appearance Clear (CLEAR) Urine pH 6.5 (5.0-8.0) Ur Specific [place] 1.010 (1.008-1.030) Urine Protein Negative (NEGATIVE) mg/dL Urine Glucose (UA) Negative (NEGATIVE) mg/dL Urine Ketones Negative (NEGATIVE) mg/dL Urine Occult Blood Small H (NEGATIVE) Urine Nitrite Negative (NEGATIVE) Urine Bilirubin Negative (NEGATIVE) Urine Urobilinogen 0.2 (0.2-1.0) EU/dL Ur Leukocyte Esterase Negative (NEGATIVE) Urine RBC 0-5 (0-5) Urine WBC Not seen (0-5) Ur Epithelial Cells Rare Amorphous Sediment Not seen Urine Bacteria Rare Urine Mucus Not seen 07/17/19 Range/Units 04:06 WBC (4.5-11.0) K/uL RBC (4.30-5.90) M/uL Hgb (12.0-15.0) g/dL Hct (40.0-54.0) % MCV (80-98) fL MCH (27-31) pg MCHC (32-36) % Plt Count (150-400) K/uL D-Dimer, Quantitative (0.0-400.0) ng/mL Sodium 142 (140-148) mmol/L Potassium 4.0 (3.6-5.2) mmol/L Chloride 106 (100-108) mmol/L Carbon Dioxide 30 (21-32) mmol/L Anion Gap 6.3 (5.0-14.0) mmol/L BUN 8 (7-18) mg/dL Creatinine 1.0 (0.8-1.3) mg/dL Est Cr Clr Drug Dosing 95.92 mL/min Estimated GFR (MDRD) > 60 (>60) Glucose 89 (74-106) mg/dL Calcium 8.7 (8.5-10.1) mg/dL Magnesium 2.1 (1.8-2.4) mg/dL Troponin I 0.019 (0.000-0.056) ng/mL Urine Color (YELLOW) Urine Appearance (CLEAR) Urine pH (5.0-8.0) Ur Specific [place] (1.008-1.030) Urine Protein (NEGATIVE) mg/dL Urine Glucose (UA) (NEGATIVE) mg/dL Urine Ketones (NEGATIVE) mg/dL Urine Occult Blood (NEGATIVE) Urine Nitrite (NEGATIVE) Urine Bilirubin (NEGATIVE) Urine Urobilinogen (0.2-1.0) EU/dL Ur Leukocyte Esterase (NEGATIVE) Urine RBC (0-5) Urine WBC (0-5) Ur Epithelial Cells Amorphous Sediment Urine Bacteria Urine Mucus Med Orders - Current: Current Medications Acetaminophen (Tylenol) 650 mg PO Q4H PRN PRN Reason: Pain (Mild 1-3)/fever Albuterol (Proventil Neb Soln) 2.5 mg NEB Q4H PRN PRN Reason: Shortness Of Breath/wheezing Aspirin (Aspirin) 81 mg PO QAM [facility] Atorvastatin Calcium (Lipitor) 10 mg PO BEDTIME [facility] Enoxaparin Sodium (Lovenox) 40 mg SUBCUT Q24H [facility] Last Admin: 07/17/19 01:44 Dose: 40 mg Metoprolol Tartrate (Lopressor) 25 mg PO BID [facility] Mometasone Furoate (Asmanex Hfa 200mcg) 0 gm INH BID PRN PRN Reason: Shortness of Breath Morphine Sulfate (Morphine) 2 mg IVPUSH Q2H PRN PRN Reason: Pain (severe 7-10) Nitroglycerin (Nitrostat) 0.4 mg SL Q5M PRN PRN Reason: Chest Pain Stop: 07/18/19 00:15 Ondansetron HCl (Zofran) 4 mg IV Q4H PRN PRN Reason: Nausea/Vomiting Pantoprazole Sodium (Protonix) 40 mg PO ACBREAKFAST [facility] Polyethylene Glycol (Miralax) 17 gm PO DAILY PRN PRN Reason: Constipation Sodium Chloride (Saline Flush) 10 ml FLUSH ASDIRECTED PRN PRN Reason: Keep Vein Open Discontinued Medications Isosorbide Mononitrate (Imdur) 30 mg PO ONETIME ONE Stop: 07/16/19 22:26 Last Admin: 07/16/19 22:43 Dose: 30 mg Metoprolol Tartrate (Lopressor) 25 mg PO ONETIME ONE Stop: 07/16/19 22:26 Last Admin: 07/16/19 22:43 Dose: 25 mg Morphine Sulfate (Morphine) 4 mg IVPUSH ONETIME ONE Stop: 07/16/19 20:24 Last Admin: 07/16/19 20:38 Dose: 4 mg Potassium Chloride (Potassium Chloride) 20 meq PO ONETIME ONE Stop: 07/16/19 21:16 Last Admin: 07/16/19 21:24 Dose: 20 meq - Exam General: Reports: Alert, Oriented, Cooperative, No Acute Distress Lungs: Reports: Clear to Auscultation, Normal Respiratory Effort Cardiovascular: Reports: Regular Rate, Regular Rhythm, No Murmurs GI/Abdominal Exam: Soft, Non-Tender, No Organomegaly, No Distention Extremities: Non-Tender, No Pedal Edema
[2019-07-17 10:18] VITALS: BP 113/65; PULSE 62
[2019-07-17] MEDS ORDERED: ATORVASTATIN 20 MG PO SCH (21:00)
== END 2019-07-17 11:49 | disposition home or self-care (01) ==
LOC: JP.ED 20:03 → JP.ICU 07-17 00:10
PROVIDERS: ADMIT Hospitalist; ATTEND Hospitalist
DX: R07.9 Chest pain, unspecified (principal); R55 Syncope and collapse; I10 Essential (primary) hypertension; I25.10 Atherosclerotic heart disease of native coronary artery without angina pectoris; I25.2 Old myocardial infarction; E78.00 Pure hypercholesterolemia, unspecified; G89.29 Other chronic pain; M54.9 Dorsalgia, unspecified; H91.92 Unspecified hearing loss, left ear; Z95.5 Presence of coronary angioplasty implant and graft; Z79.82 Long term (current) use of aspirin; Z79.899 Other long term (current) drug therapy
CPT/HCPCS: 36415; 80048; 81001; 83735; 84484; 85027; 85379; 93005; 96372; 96374; 99285; A9270; G0378; J1650; J2270; 93010; 99284

== ENCOUNTER 2019-07-24 17:19 | Emergency (ER) | payer MEDICARE, MEDICAID ==
[2019-07-24 17:36] VITALS: BP 133/71; PULSE 81
--- NOTE | 2019-07-24 18:31 | EDM.PDOC ---
ED HPI GENERAL MEDICAL PROBLEM - General Chief Complaint: Lower Extremity Injury/Pain Stated Complaint: PAIN IN LEFT FOOT Time Seen by Provider: 07/24/19 18:33 Source of Information: Reports: Patient History Limitations: Reports: No Limitations - History of Present Illness INITIAL COMMENTS - FREE TEXT/NARRATIVE: pt has a painful second toe on the left. He feels like something sharp is sticking into the toe. Onset: Gradual Duration: Hour(s): Location: Reports: Lower Extremity, Left Associated Symptoms: Reports: No Other Symptoms Left Feet Pain Score (Numeric/FACES): 8 - Related Data Allergies Allergy/AdvReac Type Severity Reaction Status Date / Time No Known Allergies Allergy Verified 07/24/19 17:34 Home Meds: Home Meds Albuterol Sulfate [Proair Hfa] 2 puff IH Q4H PRN 12/01/14 [History] Albuterol [Proventil] 2.5 mg NEB Q2H PRN 12/01/14 [History] Fluticasone Propionate [Flovent HFA 220 MCG] 2 puff IH BID PRN 12/01/14 [History ] Aspirin [Eder Chewable Aspirin] 81 mg PO QAM 10/03/15 [History] atorvaSTATin [Lipitor] 10 mg PO BEDTIME 02/24/16 [History] Nitroglycerin [Nitrostat] 0.4 mg SL ASDIRECTED PRN 01/10/18 [History] Codeine Phosphate/Guaifenesin [Guaifen-Codeine 100-10 mg/5 ml] 10 ml PO Q4H PRN 04/09/19 [History] Metoprolol Tartrate [Lopressor] 25 mg PO BID #60 tablet 07/17/19 [Rx] Past Medical History HEENT History: Reports: Hard of Hearing, Impaired Vision 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 Cardiovascular History: Reports: CAD, High Cholesterol, Hypertension, [place], Stents Respiratory History: Reports: Asthma Genitourinary History: Reports: Urinary Incontinence Musculoskeletal History: Reports: Back Pain, Chronic, Fracture Other Musculoskeletal History: right knee pain Neurological History: Reports: Concussion, Head Trauma Dermatologic History: Reports: Cellulitis Other Dermatologic History: right ear red and swollen - Infectious Disease History Infectious Disease History: Reports: Chicken Pox - Past Surgical History Head Surgeries/Procedures: Reports: None HEENT Surgical History: Reports: None Cardiovascular Surgical History: Reports: Coronary Artery Stent Respiratory Surgical History: Reports: None Male Surgical History: Reports: None Neurological Surgical History: Reports: None Musculoskeletal Surgical History: Reports: Arthroscopic Knee, Other (See Below) Other Musculoskeletal Surgeries/Procedures:: right pointer finger Dermatological Surgical History: Reports: None Social & Family History - Family History Family Medical History: Noncontributory - Tobacco Use Smoking Status *Q: Former Smoker Used Tobacco, but Quit: Yes Month/Year Tobacco Last Used: 1987 - Caffeine Use Caffeine Use: Reports: Coffee, Soda - Recreational Drug Use Recreational Drug Use: No - Living Situation & Occupation Living situation: Reports: with Family (lives with family in yard, has a camper stays in at night.) Review of Systems - Review of Systems Review Of Systems: See Below Constitutional: Reports: No Symptoms Eyes: Reports: No Symptoms Ears: Reports: No Symptoms Nose: Reports: No Symptoms Mouth/Throat: Reports: No Symptoms Respiratory: Reports: No Symptoms Cardiovascular: Reports: No Symptoms Musculoskeletal: Reports: Other (pain in the left second toe. there is alot of callus on the toe and in general he needs care for his feet. ) Skin: Reports: No Symptoms ED EXAM, GENERAL - Physical Exam Exam: See Below Free Text/Narrative:: pt has pain on the bottom of the left second toe. There is slight redness and he has alot of callus. Exam Limited By: No Limitations General Appearance: Alert Extremities: Other (pt has alot of callus on the bottom of the second toe. The callus was trimmed down and there was no pus under it. He will be refered to Dr sosa for foot care. ) Course - Vital Signs Last Recorded V/S: Last Vital Signs Temp 36.3 C 07/24/19 17:36 Pulse 81 07/24/19 17:36 Resp 16 07/24/19 17:36 BP 133/71 07/24/19 17:36 Pulse Ox 98 07/24/19 17:36 Departure - Departure Time of Disposition: 18:29 Disposition: Home, Self-Care 01 Condition: Fair Clinical Impression: Infected abrasion of toe of left foot - Discharge Information Referrals: Bony Bone MD [Primary Care Provider] - Forms: ED Department Discharge Care Plan Goals: appt with Dr sosa to have feet cared for., keflex 500mg tid, soak foot bid.
== END 2019-07-24 18:38 | disposition home or self-care (01) ==
LOC: JP.ED 17:19
DX: S90.415A Abrasion, left lesser toe(s), initial encounter (principal); L08.9 Local infection of the skin and subcutaneous tissue, unspecified; J45.909 Unspecified asthma, uncomplicated; I25.10 Atherosclerotic heart disease of native coronary artery without angina pectoris; I10 Essential (primary) hypertension; I25.2 Old myocardial infarction; E78.00 Pure hypercholesterolemia, unspecified; Z79.82 Long term (current) use of aspirin; Z87.891 Personal history of nicotine dependence; Z79.51 Long term (current) use of inhaled steroids; Z79.899 Other long term (current) drug therapy; Z95.5 Presence of coronary angioplasty implant and graft; W45.0XXA Nail entering through skin, initial encounter
CPT/HCPCS: 99283

== ENCOUNTER 2019-11-15 17:48 | Emergency (ER) | payer MEDICARE, MEDICAID ==
[2019-11-15 17:59] VITALS: BP 146/84; PULSE 101
--- NOTE | 2019-11-15 18:21 | EDM.PDOC ---
ED HPI GENERAL MEDICAL PROBLEM - General Chief Complaint: ENT Problem Stated Complaint: BOTH EARS PLUGGED Time Seen by Provider: 11/15/19 18:13 Source of Information: Reports: Patient History Limitations: Reports: No Limitations - History of Present Illness INITIAL COMMENTS - FREE TEXT/NARRATIVE: Patient presents for ear canal cleaning. He regularly gets ear wax buildup and then can't hear well. He does use Q-Tips in his ears but acknowledges they don' t really help. He hasn't tried any other wax relief system/products regularly. Onset: Gradual Location: Reports: Head Quality: Reports: Other (Reduced hearing presumably from ear wax. Denies ear trauma.) Improves with: Reports: None Worsens with: Reports: None Associated Symptoms: Reports: No Other Symptoms - Related Data Allergies Allergy/AdvReac Type Severity Reaction Status Date / Time No Known Allergies Allergy Verified 07/24/19 17:34 Home Meds: Home Meds Albuterol Sulfate [Proair Hfa] 2 puff IH Q4H PRN 12/01/14 [History] Albuterol [Proventil] 2.5 mg NEB Q2H PRN 12/01/14 [History] Fluticasone Propionate [Flovent HFA 220 MCG] 2 puff IH BID PRN 12/01/14 [History ] Aspirin [Eder Chewable Aspirin] 81 mg PO QAM 10/03/15 [History] atorvaSTATin [Lipitor] 10 mg PO BEDTIME 02/24/16 [History] Nitroglycerin [Nitrostat] 0.4 mg SL ASDIRECTED PRN 01/10/18 [History] Codeine Phosphate/Guaifenesin [Guaifen-Codeine 100-10 mg/5 ml] 10 ml PO Q4H PRN 04/09/19 [History] Metoprolol Tartrate [Lopressor] 50 mg PO BID 11/15/19 [History] Past Medical History HEENT History: Reports: Hard of Hearing, Impaired Vision 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 Cardiovascular History: Reports: CAD, High Cholesterol, Hypertension, [place], Stents Respiratory History: Reports: Asthma Genitourinary History: Reports: Urinary Incontinence Musculoskeletal History: Reports: Back Pain, Chronic, Fracture Other Musculoskeletal History: right knee pain Neurological History: Reports: Concussion, Head Trauma Dermatologic History: Reports: Cellulitis Other Dermatologic History: right ear red and swollen - Infectious Disease History Infectious Disease History: Reports: Chicken Pox - Past Surgical History Head Surgeries/Procedures: Reports: None HEENT Surgical History: Reports: None Cardiovascular Surgical History: Reports: Coronary Artery Stent Respiratory Surgical History: Reports: None Male Surgical History: Reports: None Neurological Surgical History: Reports: None Musculoskeletal Surgical History: Reports: Arthroscopic Knee, Other (See Below) Other Musculoskeletal Surgeries/Procedures:: right pointer finger Dermatological Surgical History: Reports: None Social & Family History - Family History Family Medical History: Noncontributory - Tobacco Use Smoking Status *Q: Never Smoker - Caffeine Use Caffeine Use: Reports: Coffee, Soda - Recreational Drug Use Recreational Drug Use: No - Living Situation & Occupation Living situation: Reports: with Family (lives with family in yard, has a camper stays in at night.) ED ROS ENT - Review of Systems Review Of Systems: Comprehensive ROS is negative, except as noted in HPI. ED EXAM, ENT - Physical Exam Exam: See Below Text/Narrative:: This is an adult male in no distress seated in room 2. Exam Limited By: No Limitations General Appearance: Alert, No Apparent Distress Ears: Cerumen Impaction (Both ear canals are almost completely occluded by cerumen, the left canal has softer appearing material than the right. Small portions of each TM can be visualized.) Nose: Normal Inspection Respiratory/Chest: No Respiratory Distress Cardiovascular: Regular Rate, Rhythm, Tachycardia Course - Vital Signs Last Recorded V/S: Last Vital Signs Temp 35.9 C L 11/15/19 18:01 Pulse 101 H 11/15/19 18:01 Resp 16 11/15/19 18:01 BP 146/84 H 11/15/19 18:01 Pulse Ox 96 11/15/19 18:01 - Re-Assessments/Exams Free Text/Narrative Re-Assessment/Exam: 11/15/19 18:27 Both ear canals will be irrigated with warm water. 11/15/19 18:57 Most of the earwax was removed with warm water irrigation but there were still some residual pieces in each ear canal. Using a plastic loop ear curet, the remaining wax fragments were removed with minor effort. 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 I discussed ear my types as being the most helpful. Reviewed earwax maintenance procedures. Departure - Departure Time of Disposition: 18:56 Disposition: Home, Self-Care 01 Condition: Good Clinical Impression: Excessive cerumen in both ear canals - Discharge Information *PRESCRIPTION DRUG MONITORING PROGRAM REVIEWED*: Not Applicable *COPY OF PRESCRIPTION DRUG MONITORING REPORT IN PATIENT PARISH: Not Applicable Instructions: Earwax Buildup, Adult Referrals: Bony Bone MD [Primary Care Provider] - Forms: ED Department Discharge Additional Instructions: I recommend using a small amount of Colace liquid, salad oil, mineral oil, or similar product in each ear canal every [address] a teaspoon or so of one of the previously mentioned products in the ear canal while he is lying on your side with that ear up. You should leave the liquid in that ear canal for at least 20 minutes. He could then do the opposite ear canal in the same manner. Afterwards I recommend getting in the shower and using soap and irrigation water from the shower head to flush the debris out. I recommend not using Q-tips at all as it will only push the earwax farther in against the eardrum. If you schedule a clinic appointment for this every 3 months, that would be more convenient for you. I also recommend using some kind of hearing protection, ear muff type is the best. Sepsis Event Note - Evaluation Sepsis Screening Result: No Definite Risk - Focused Exam Vital Signs: Vital Signs Temp Pulse Resp BP Pulse Ox 11/15/19 18:01 35.9 C L 101 H 16 146/84 H 96 11/15/19 17:59 35.9 C L 101 H 16 146/84 H 96 Date Exam was Performed: 11/15/19 Time Exam was Performed: 18:56
== END 2019-11-15 19:04 | disposition home or self-care (01) ==
LOC: JP.ED 17:48
DX: H61.23 Impacted cerumen, bilateral (principal)
CPT/HCPCS: 69210; 99281; 99283

== ENCOUNTER 2020-01-18 23:49 | Emergency (ER) | payer MEDICARE, MEDICAID ==
[2020-01-19 00:04] VITALS: BP 140/84; PULSE 66
--- NOTE | 2020-01-19 00:23 | EDM.PDOC ---
ED HPI GENERAL MEDICAL PROBLEM - General Chief Complaint: Bite:Animal, Insect Stated Complaint: TICK BITE Time Seen by Provider: 01/19/20 00:17 Source of Information: Reports: Patient History Limitations: Reports: No Limitations - History of Present Illness INITIAL COMMENTS - FREE TEXT/NARRATIVE: pt pulled a tick off that was vwery embedded about 2 weeks ago. He is concerned that there is something in the wound. Onset: Gradual Duration: Day(s): Location: Reports: Lower Extremity, Left Associated Symptoms: Reports: No Other Symptoms - Related Data Allergies Allergy/AdvReac Type Severity Reaction Status Date / Time No Known Allergies Allergy Verified 07/24/19 17:34 Home Meds: Home Meds Albuterol Sulfate [Proair Hfa] 2 puff IH Q4H PRN 12/01/14 [History] Albuterol [Proventil] 2.5 mg NEB Q2H PRN 12/01/14 [History] Fluticasone Propionate [Flovent HFA 220 MCG] 2 puff IH BID PRN 12/01/14 [History ] Aspirin [Eder Chewable Aspirin] 81 mg PO QAM 10/03/15 [History] atorvaSTATin [Lipitor] 10 mg PO BEDTIME 02/24/16 [History] Nitroglycerin [Nitrostat] 0.4 mg SL ASDIRECTED PRN 01/10/18 [History] Codeine Phosphate/Guaifenesin [Guaifen-Codeine 100-10 mg/5 ml] 10 ml PO Q4H PRN 04/09/19 [History] Metoprolol Tartrate [Lopressor] 25 mg PO BID 11/15/19 [History] Past Medical History HEENT History: Reports: Hard of Hearing, Impaired Vision 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 Cardiovascular History: Reports: CAD, High Cholesterol, Hypertension, [place], Stents Respiratory History: Reports: Asthma Genitourinary History: Reports: Urinary Incontinence Musculoskeletal History: Reports: Back Pain, Chronic, Fracture Other Musculoskeletal History: right knee pain Neurological History: Reports: Concussion, Head Trauma Dermatologic History: Reports: Cellulitis Other Dermatologic History: right ear red and swollen - Infectious Disease History Infectious Disease History: Reports: Chicken Pox - Past Surgical History Head Surgeries/Procedures: Reports: None HEENT Surgical History: Reports: None Cardiovascular Surgical History: Reports: Coronary Artery Stent Respiratory Surgical History: Reports: None Male Surgical History: Reports: None Neurological Surgical History: Reports: None Musculoskeletal Surgical History: Reports: Arthroscopic Knee, Other (See Below) Other Musculoskeletal Surgeries/Procedures:: right pointer finger Dermatological Surgical History: Reports: None Social & Family History - Family History Family Medical History: Noncontributory - Tobacco Use Smoking Status *Q: Never Smoker Second Hand Smoke Exposure: No - Caffeine Use Caffeine Use: Reports: Soda - Recreational Drug Use Recreational Drug Use: No - Living Situation & Occupation Living situation: Reports: with Family (lives with family in yard, has a camper stays in at night.) ED ROS GENERAL - Review of Systems Review Of Systems: See Below Constitutional: Reports: No Symptoms HEENT: Reports: No Symptoms Respiratory: Reports: No Symptoms Cardiovascular: Reports: No Symptoms Endocrine: Reports: No Symptoms GI/Abdominal: Reports: No Symptoms Musculoskeletal: Reports: Other ( tick bite on left lower leg. ) Skin: Reports: No Symptoms Neurological: Reports: No Symptoms Psychiatric: Reports: No Symptoms ED EXAM, ANIMAL BITE - Physical Exam Exam: See Below Text/Narrative:: pt has an area where a tick was pulled off and it now is mildly red and itchy. He believes this was a deer tick Exam Limited By: No Limitations General Appearance: Alert Extremities: Other (leg has a reded area just below the knee where the tick was removed. ) Neurological: Alert, Oriented, Normal Cognition Course - Vital Signs Last Recorded V/S: Last Vital Signs Temp 36 C L 01/19/20 00:02 Pulse 66 01/19/20 00:02 Resp 16 01/19/20 00:02 BP 140/84 01/19/20 00:02 Pulse Ox 95 01/19/20 00:02 - Orders/Labs/Meds Orders: Medication Orders Doxycycline Hyclate (Vibramycin) 100 mg PO ONETIME ONE Stop: 01/19/20 00:28 Meds: Medications Generic Name Dose Route Start Last Admin Trade Name Freq PRN Reason Stop Dose Admin Doxycycline Hyclate 100 mg 01/19/20 00:27 Vibramycin PO 01/19/20 00:28 ONETIME ONE Discontinued Medications Generic Name Dose Route Start Last Admin Trade Name Freq PRN Reason Stop Dose Admin Bacitracin 1 dose 01/19/20 00:25 Bacitracin Oint 1 Gm TOP 01/19/20 00:26 ONETIME ONE - Re-Assessments/Exams Free Text/Narrative Re-Assessment/Exam: 01/19/20 00:34 pt was given doxycyline and bacatracin was applied to the wound. Departure - Departure Time of Disposition: 00:23 Disposition: Home, Self-Care 01 Condition: Fair Clinical Impression: Tick bite - Discharge Information Referrals: Bony Bone MD [Primary Care Provider] - Forms: ED Department Discharge Care Plan Goals: clean area daily and apply bacatracin. doxycyline 100mg bid for 3 days. Sepsis Event Note - Focused Exam Vital Signs: Vital Signs Temp Pulse Resp BP Pulse Ox 01/19/20 00:02 36 C L 66 16 140/84 95 Date Exam was Performed: 01/19/20 Time Exam was Performed: 00:28
[2020-01-19] MEDS ORDERED: Bacitracin Oint 1 GM U/D Packet TOP ONE (00:25)
[2020-01-19] MEDS ORDERED: Doxycycline 100 MG Cap PO ONE (00:27)
== END 2020-01-19 00:45 | disposition home or self-care (01) ==
LOC: JP.ED 23:49
DX: S80.862A Insect bite (nonvenomous), left lower leg, initial encounter (principal); I25.10 Atherosclerotic heart disease of native coronary artery without angina pectoris; E78.00 Pure hypercholesterolemia, unspecified; I10 Essential (primary) hypertension; I25.2 Old myocardial infarction; Z95.5 Presence of coronary angioplasty implant and graft; J45.909 Unspecified asthma, uncomplicated; Z79.899 Other long term (current) drug therapy; W57.XXXA Bitten or stung by nonvenomous insect and other nonvenomous arthropods, initial encounter
CPT/HCPCS: 99282; A9270; 99283

== ENCOUNTER 2020-04-11 18:55 | Emergency (ER) | payer MEDICARE, MEDICAID ==
[2020-04-11 19:12] VITALS: BP 136/87; PULSE 105
[2020-04-11] MEDS ORDERED: Sodium Chloride 0.9% 1,000 ML IV SCH (19:30)
--- NOTE | 2020-04-11 19:34 | EDM.PDOC ---
ED HPI GENERAL MEDICAL PROBLEM - General Chief Complaint: Abdominal Pain Stated Complaint: GROIN PAIN Time Seen by Provider: 04/11/20 19:15 Source of Information: Reports: Patient History Limitations: Reports: No Limitations - History of Present Illness INITIAL COMMENTS - FREE TEXT/NARRATIVE: 54-year-old male who 1/2-hour ago was riding his bicycle when he felt a significant pop and heard a pop in his groin and lower abdomen and rapidly developed some significant swelling in the right groin. The swelling has now settled down, he is developed some ecchymosis on the upper aspect of the right scrotum and penis he is exquisitely tender around the whole area. Onset: Sudden Duration: Hour(s): (1/2-hour ago) Location: Reports: Other (Groin) Associated Symptoms: Reports: No Other Symptoms - Related Data Allergies Allergy/AdvReac Type Severity Reaction Status Date / Time No Known Allergies Allergy Verified 07/24/19 17:34 Home Meds: Home Meds Albuterol Sulfate [Proair Hfa] 2 puff IH Q4H PRN 12/01/14 [History] Albuterol [Proventil] 2.5 mg NEB Q2H PRN 12/01/14 [History] Fluticasone Propionate [Flovent HFA 220 MCG] 2 puff IH BID PRN 12/01/14 [History] Aspirin [Eder Chewable Aspirin] 81 mg PO QAM 10/03/15 [History] atorvaSTATin [Lipitor] 10 mg PO BEDTIME 02/24/16 [History] Nitroglycerin [Nitrostat] 0.4 mg SL ASDIRECTED PRN 01/10/18 [History] Codeine Phosphate/Guaifenesin [Guaifen-Codeine 100-10 mg/5 ml] 10 ml PO Q4H PRN 04/09/19 [History] Metoprolol Tartrate [Lopressor] 25 mg PO BID 11/15/19 [History] Past Medical History HEENT History: Reports: Hard of Hearing, Impaired Vision 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 Cardiovascular History: Reports: CAD, High Cholesterol, Hypertension, [place], Stents Respiratory History: Reports: Asthma Genitourinary History: Reports: Urinary Incontinence Musculoskeletal History: Reports: Back Pain, Chronic, Fracture Other Musculoskeletal History: right knee pain Neurological History: Reports: Concussion, Head Trauma Dermatologic History: Reports: Cellulitis Other Dermatologic History: right ear red and swollen - Infectious Disease History Infectious Disease History: Reports: Chicken Pox - Past Surgical History Head Surgeries/Procedures: Reports: None HEENT Surgical History: Reports: None Cardiovascular Surgical History: Reports: Coronary Artery Stent Respiratory Surgical History: Reports: None Male Surgical History: Reports: None Neurological Surgical History: Reports: None Musculoskeletal Surgical History: Reports: Arthroscopic Knee, Other (See Below) Other Musculoskeletal Surgeries/Procedures:: right pointer finger Dermatological Surgical History: Reports: None Social & Family History - Family History Family Medical History: Noncontributory - Tobacco Use Smoking Status *Q: Never Smoker - Caffeine Use Caffeine Use: Reports: Soda - Living Situation & Occupation Living situation: Reports: with Family (lives with family in yard, has a camper stays in at night.) ED ROS GENERAL - Review of Systems Review Of Systems: See Below Constitutional: Denies: Fever, Chills Respiratory: Denies: Shortness of Breath Cardiovascular: Denies: Chest Pain GI/Abdominal: Reports: Abdominal Pain (Some pain over the lower abdomen, suprapubic area) Skin: Reports: Bruising (Some bruising developing in the groin) ED EXAM, GENERAL - Physical Exam Exam: See Below Exam Limited By: No Limitations General Appearance: Alert, Mild Distress (Fairly uncomfortable) Head: Atraumatic Respiratory/Chest: No Respiratory Distress GI/Abdominal: Soft, Tender (Patient is tender just above the suprapubic area and into the right and left lower quadrants above the inguinal canals and inguinal ligaments.) (Male) Exam: No Hernia, Other (Difficult to examine because any palpation of the groin area, scrotum, testicles or penis is exquisitely tender and he will not allow an exam. He does have some edema and ecchymosis developing along the right aspect of the penile shaft) Extremities: Normal Inspection Neurological: Alert, Oriented Course - Vital Signs Last Recorded V/S: Last Vital Signs Temp 96.1 F L 04/11/20 19:13 Pulse 105 H 04/11/20 19:13 Resp 16 04/11/20 19:13 BP 136/87 04/11/20 19:13 Pulse Ox 98 04/11/20 19:13 - Orders/Labs/Meds Labs: Laboratory Tests 04/11/20 04/11/20 Range/Units 19:37 19:37 WBC 8.0 (4.5-11.0) K/uL RBC 5.07 (4.30-5.90) M/uL Hgb 14.1 (12.0-15.0) g/dL Hct 42.4 (40.0-54.0) % MCV 84 (80-98) fL MCH 28 (27-31) pg MCHC 33 (32-36) % Plt Count 332 (150-400) K/uL Neut % (Auto) 73 H (36-66) % Lymph % (Auto) 15 L (24-44) % Lane % (Auto) 10 H (2-6) % Eos % (Auto) 1 L (2-4) % Baso % (Auto) 1 (0-1) % Sodium 138 L (140-148) mmol/L Potassium 3.7 (3.6-5.2) mmol/L Chloride 102 (100-108) mmol/L Carbon Dioxide 23 (21-32) mmol/L Anion Gap 16.7 H (5.0-14.0) mmol/L BUN 14 D (7-18) mg/dL Creatinine 1.5 H (0.8-1.3) mg/dL Est Cr Clr Drug Dosing 63.23 mL/min Estimated GFR (MDRD) 49 L (>60) Glucose 140 H (74-106) mg/dL Calcium 9.0 (8.5-10.1) mg/dL Meds: Medications Discontinued Medications Generic Name Dose Route Start Last Admin Trade Name Freq PRN Reason Stop Dose Admin Sodium Chloride 1,000 mls @ 1,000 mls/hr 04/11/20 19:30 04/11/20 19:36 Normal Saline IV 1,000 mls/hr ASDIRECTED MARTIN Administration Sodium Chloride 75 mls @ 3.5 mls/sec 04/11/20 20:30 04/11/20 20:44 Normal Saline IV 3 mls/sec ASDIRECTED MARTIN Administration Iopamidol 100 ml 04/11/20 20:30 04/11/20 20:44 Isovue-300 (61%) IV 100 ml . DIRECTED MARTIN Administration Ketorolac Tromethamine 30 mg 04/11/20 21:09 04/11/20 21:13 Toradol IVPUSH 04/11/20 21:10 30 mg ONETIME ONE Administration Sodium Chloride 10 ml 04/11/20 20:26 04/11/20 20:44 Saline Flush FLUSH 04/11/20 20:27 10 ml ONETIME ONE Administration - Re-Assessments/Exams Free Text/Narrative Re-Assessment/Exam: 04/11/20 19:34 This seems more of a musculoskeletal injury than a hernia, patient will be given 1 L of normal saline, kidney function will be checked and then an IV contrast- enhanced CT of the pelvis if kidney function is adequate. 04/11/20 19:57 CBC is normal, CMP shows a mildly elevated creatinine at 1.5 and GFR of 49 but patient has been bolused with 1 L of normal saline. An IV enhanced CT of the pelvis was ordered. 04/11/20 21:22 IMPRESSION: 1. Mild subcutaneous fat stranding just superior to the penis. In view of the history of injury, this likely represents a small area of bruising. No hematoma or fracture is seen. 2. Nonacute additional findings as detailed above. Above findings were discussed with the patient and he was given 30 mg of IV Toradol. He was encouraged to increase activity as tolerated, ice down any sore areas and a regular anti-inflammatory may be beneficial. Recheck next week if not improving satisfactorily, or return sooner if urine retention or significant swelling or other concerns. Departure - Departure Time of Disposition: 21:38 Disposition: Home, Self-Care 01 Clinical Impression: Contusion of groin Qualifiers: Encounter type: initial encounter Qualified Code(s): S30.1XXA - Contusion of abdominal wall, initial encounter - Discharge Information Instructions: Contusion, [id number] Referrals: Bony Bone MD [Primary Care Provider] - Forms: ED Department Discharge Care Plan Goals: Increase activity as tolerated, a regular dose of anti-inflammatory such as ibuprofen or naproxen will help, and recheck next week if not improving satisfactorily. Return sooner if unable to urinate, significant swelling or pain occurs, or you develop other concerns. Local ice to the area may be beneficial as well for the first 1 to 2 days. Sepsis Event Note (ED) - Evaluation Sepsis Screening Result: No Definite Risk - Focused Exam Vital Signs: Vital Signs Temp Pulse Resp BP Pulse Ox 04/11/20 19:13 96.1 F L 105 H 16 136/87 98 04/11/20 19:11 96.1 F L 105 H 16 136/87 98
[2020-04-11] MEDS ORDERED: Sodium Chloride 0.9% 10 ML Syringe FLUSH ONE (20:26)
[2020-04-11] MEDS ORDERED: Sodium Chloride 0.9% 75 ML IV SCH (20:30)
[2020-04-11] MEDS ORDERED: Iopamidol 612 MG/ML 100 ML Bottle IV SCH (20:30)
[2020-04-11] MEDS ORDERED: Ketorolac 30 MG/ML SDV IVPUSH ONE (21:09)
--- NOTE | 2020-04-11 21:18 | CRLCT ---
INDICATION: Injury. Groin swelling. CT PELVIS WITH CONTRAST TECHNIQUE: Multidetector CT imaging was performed through the pelvis following intravenous contrast administration using 100 mL Isovue-300. Coronal and sagittal reconstructions were generated. COMPARISON: None. FINDINGS: Urinary bladder: [id number] diffuse wall thickening of the urinary bladder. Gastrointestinal tract and abdominal wall: Normal caliber included small bowel without wall thickening or obstruction. The appendix is normal. There are multiple colon diverticula without evidence of diverticulitis. Very small bilateral fat-containing inguinal hernias are noted and there is a small fat-containing umbilical hernia. Vascular structures: Normal for age. Peritoneum: No free air, abscess, or significant free fluid. Lymph nodes: No pathologically enlarged nodes identified. Reproductive organs: Mild prostatomegaly. Bones and groin regions: No fracture identified in the bony pelvis or hips. Mild subcutaneous fat stranding in the midline just superior to the penis. IMPRESSION: 1. Mild subcutaneous fat stranding just superior to the penis. In view of the history of injury, this likely represents a small area of bruising. No hematoma or fracture is seen. 2. Nonacute additional findings as detailed above. KAREN SHORE MD [facility] Dictated by Jones Shore MD @ 04/11/2020 9:15:51 PM Dictated by: Jones Shore MD @ 04/11/2020 21:16:30 (Electronically Signed)
== END 2020-04-11 21:38 | disposition home or self-care (01) ==
LOC: JP.ED 18:55
DX: S30.1XXA Contusion of abdominal wall, initial encounter (principal); I10 Essential (primary) hypertension; E78.00 Pure hypercholesterolemia, unspecified; I25.2 Old myocardial infarction; Z95.5 Presence of coronary angioplasty implant and graft; I25.10 Atherosclerotic heart disease of native coronary artery without angina pectoris; Z79.899 Other long term (current) drug therapy; V28.9XXA Unspecified motorcycle rider injured in noncollision transport accident in traffic accident, initial encounter
CPT/HCPCS: 36415; 72193; 80048; 85025; 96361; 96374; 99284; J1885; J7030; J7050; Q9967

== ENCOUNTER 2020-08-13 16:00 | Emergency (ER) | payer MEDICARE, MEDICAID ==
[2020-08-13 16:13] VITALS: BP 147/79; PULSE 90
--- NOTE | 2020-08-13 17:09 | EDM.PDOC ---
ED HPI GENERAL MEDICAL PROBLEM - General Chief Complaint: ENT Problem Stated Complaint: BOTH EARS ARE PLUGGED Time Seen by Provider: 08/13/20 16:20 Source of Information: Reports: Patient, RN Notes Reviewed History Limitations: Reports: No Limitations - History of Present Illness INITIAL COMMENTS - FREE TEXT/NARRATIVE: 55-year-old gentleman presents emergency department a complaint of ears being plugged with wax - Related Data Allergies Allergy/AdvReac Type Severity Reaction Status Date / Time No Known Allergies Allergy Verified 08/13/20 16:10 Home Meds: Home Meds Albuterol Sulfate [Proair Hfa] 2 puff IH Q4H PRN 12/01/14 [History] Albuterol [Proventil] 2.5 mg NEB Q2H PRN 12/01/14 [History] Fluticasone Propionate [Flovent HFA 220 MCG] 2 puff IH BID PRN 12/01/14 [History] Aspirin [Eder Chewable Aspirin] 81 mg PO QAM 10/03/15 [History] atorvaSTATin [Lipitor] 10 mg PO BEDTIME 02/24/16 [History] Nitroglycerin [Nitrostat] 0.4 mg SL ASDIRECTED PRN 01/10/18 [History] Metoprolol Tartrate [Lopressor] 25 mg PO BID 11/15/19 [History] Past Medical History HEENT History: Reports: Hard of Hearing, Impaired Vision 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 Cardiovascular History: Reports: CAD, High Cholesterol, Hypertension, [place], Stents Respiratory History: Reports: Asthma Genitourinary History: Reports: Urinary Incontinence Musculoskeletal History: Reports: Back Pain, Chronic, Fracture Other Musculoskeletal History: right knee pain Neurological History: Reports: Concussion, Head Trauma Dermatologic History: Reports: Cellulitis Other Dermatologic History: right ear red and swollen - Infectious Disease History Infectious Disease History: Reports: Chicken Pox - Past Surgical History Head Surgeries/Procedures: Reports: None HEENT Surgical History: Reports: None Cardiovascular Surgical History: Reports: Coronary Artery Stent Respiratory Surgical History: Reports: None Male Surgical History: Reports: None Neurological Surgical History: Reports: None Musculoskeletal Surgical History: Reports: Arthroscopic Knee, Other (See Below) Other Musculoskeletal Surgeries/Procedures:: right pointer finger Dermatological Surgical History: Reports: None Social & Family History - Family History Family Medical History: No Pertinent Family History - Tobacco Use Tobacco Use Status *Q: Never Tobacco User Second Hand Smoke Exposure: No - Caffeine Use Caffeine Use: Reports: Coffee, Soda - Recreational Drug Use Recreational Drug Use: No - Living Situation & Occupation Living situation: Reports: with Family (lives with family in yard, has a camper stays in at night.) ED ROS ENT - Review of Systems Review Of Systems: See Below HEENT: Reports: Other (Earwax) ED EXAM, ENT - Physical Exam Exam: See Below Text/Narrative:: Examination of both ears blocked by cerumen bilaterally after flushing with copious amounts of water tympanic membrane is clear to landmarks and light reflex canal is clear bilaterally Exam Limited By: No Limitations General Appearance: Alert, WD/WN, No Apparent Distress Course - Vital Signs Last Recorded V/S: Last Vital Signs Temp 97.7 F 08/13/20 16:13 Pulse 90 08/13/20 16:13 Resp 16 08/13/20 16:13 BP 147/79 H 08/13/20 16:13 Pulse Ox 97 08/13/20 16:13 Departure - Departure Time of Disposition: 17:08 Disposition: Home, Self-Care 01 Condition: Poor Clinical Impression: Impacted cerumen of both ears - Discharge Information Instructions: Ear Drops, Adult Referrals: Bony Bone MD [Primary Care Provider] - Additional Instructions: Follow-up primary care as needed Sepsis Event Note (ED) - Evaluation Sepsis Screening Result: No Definite Risk - Focused Exam Vital Signs: Vital Signs Temp Pulse Resp BP Pulse Ox 08/13/20 16:13 97.7 F 90 16 147/79 H 97 08/13/20 16:12 97.7 F 90 16 147/79 H 97 - Assessment/Plan Plan: Assessment Acuity = acute Site and laterality = bilateral cerumen impaction Etiology = excessive wax Manifestations = none Location of injury = Home Lab values = none Plan Primary care as needed This note was dictated using [employer] voice recognition software please call with any questions on syntax or grammar.
== END 2020-08-13 17:14 | disposition home or self-care (01) ==
LOC: JP.ED 16:00
DX: H61.23 Impacted cerumen, bilateral (principal); I25.10 Atherosclerotic heart disease of native coronary artery without angina pectoris; E78.00 Pure hypercholesterolemia, unspecified; I10 Essential (primary) hypertension; I25.2 Old myocardial infarction; J45.909 Unspecified asthma, uncomplicated; Z79.899 Other long term (current) drug therapy; Z79.82 Long term (current) use of aspirin; Z95.5 Presence of coronary angioplasty implant and graft
CPT/HCPCS: 99282

== ENCOUNTER 2020-09-08 18:26 | Emergency (ER) | payer MEDICARE, MEDICAID ==
[2020-09-08 19:25] VITALS: BP 129/80; PULSE 83
--- NOTE | 2020-09-08 19:36 | EDM.PDOC ---
ED HPI GENERAL MEDICAL PROBLEM - General Chief Complaint: Cardiovascular Problem Stated Complaint: CHEST PAIN Time Seen by Provider: 09/08/20 19:00 Source of Information: Reports: Patient History Limitations: Reports: No Limitations - History of Present Illness INITIAL COMMENTS - FREE TEXT/NARRATIVE: 55-year-old male has a cardiology appointment coming up next month, he got a c all from the department to confirm his appointment and they asked how he is doing. He said that he has been having chest pain at night while watching TV but not while he is active, so they told him to come to the emergency room. He has no pain at this time. He does not get shortness of breath or diaphoresis with the pain, but it does last up to a half an hour, is sharp and originates in the upper left chest and radiates to the right shoulder. It does seem to respond to nitroglycerin. He did however have a Cardiolite stress test just over a month ago which was completely normal. Onset: Unknown/Unsure (He has been having symptoms for several weeks) Location: Reports: Chest (Upper left chest rating to the right shoulder) Worsens with: Reports: Other (Seems to be worse when he is sitting and resting) Associated Symptoms: Reports: No Other Symptoms - Related Data Allergies Allergy/AdvReac Type Severity Reaction Status Date / Time No Known Allergies Allergy Verified 09/08/20 18:51 Home Meds: Home Meds Albuterol Sulfate [Proair Hfa] 2 puff IH Q4H PRN 12/01/14 [History] Albuterol [Proventil] 2.5 mg NEB Q2H PRN 12/01/14 [History] Fluticasone Propionate [Flovent HFA 220 MCG] 2 puff IH BID PRN 12/01/14 [Histo ry] Aspirin [Eder Chewable Aspirin] 81 mg PO QAM 10/03/15 [History] atorvaSTATin [Lipitor] 10 mg PO BEDTIME 02/24/16 [History] Nitroglycerin [Nitrostat] 0.4 mg SL ASDIRECTED PRN 01/10/18 [History] Metoprolol Tartrate [Lopressor] 25 mg PO BID 11/15/19 [History] Past Medical History HEENT History: Reports: Hard of Hearing, Impaired Vision 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 Cardiovascular History: Reports: CAD, High Cholesterol, Hypertension, [place], Stents Respiratory History: Reports: Asthma Genitourinary History: Reports: Urinary Incontinence Musculoskeletal History: Reports: Back Pain, Chronic, Fracture Other Musculoskeletal History: right knee pain Neurological History: Reports: Concussion, Head Trauma Dermatologic History: Reports: Cellulitis Other Dermatologic History: right ear red and swollen - Infectious Disease History Infectious Disease History: Reports: Chicken Pox - Past Surgical History Head Surgeries/Procedures: Reports: None HEENT Surgical History: Reports: None Cardiovascular Surgical History: Reports: Coronary Artery Stent Respiratory Surgical History: Reports: None Male Surgical History: Reports: None Neurological Surgical History: Reports: None Musculoskeletal Surgical History: Reports: Arthroscopic Knee, Other (See Below) Other Musculoskeletal Surgeries/Procedures:: right pointer finger Dermatological Surgical History: Reports: None Social & Family History - Family History Family Medical History: No Pertinent Family History - Tobacco Use Tobacco Use Status *Q: Never Tobacco User - Caffeine Use Caffeine Use: Reports: Coffee, Soda Caffeine Use Comment: one pot of coffee per day, 32 oz of mountain dew per day - Recreational Drug Use Recreational Drug Use: No - Living Situation & Occupation Living situation: Reports: with Family (lives with family in yard, has a camper stays in at night.) ED ROS GENERAL - Review of Systems Review Of Systems: See Below Constitutional: Denies: Fever, Chills HEENT: Reports: Other (Recurring cerumen impaction in his ears) Respiratory: Denies: Shortness of Breath Cardiovascular: Reports: Chest Pain (Described in HPI). Denies: Palpitations GI/Abdominal: Reports: No Symptoms : Reports: No Symptoms Skin: Reports: No Symptoms Neurological: Reports: No Symptoms Psychiatric: Reports: No Symptoms ED EXAM, GENERAL - Physical Exam Exam: See Below Exam Limited By: No Limitations General Appearance: Alert, No Apparent Distress Head: Atraumatic Neck: Supple, Non-Tender Respiratory/Chest: Lungs Clear, Chest Non-Tender (I could not reproduce any chest pain with palpation of the chest wall) Cardiovascular: Regular Rate, Rhythm GI/Abdominal: Soft, Non-Tender Neurological: Alert, Oriented Psychiatric: Normal Affect, Normal Mood Skin Exam: Warm, Dry Course - Vital Signs Last Recorded V/S: Last Vital Signs Temp 98.2 F 09/08/20 18:53 Pulse 83 09/08/20 19:24 Resp 16 09/08/20 18:53 BP 129/80 09/08/20 19:24 Pulse Ox 92 L 09/08/20 19:24 - Orders/Labs/Meds Orders: Active Orders 24 hr Category Date Time Status EKG 12 Lead [EK] Routine Ther 09/08/20 19:10 Ordered Labs: Laboratory Tests 09/08/20 Range/Units 19:21 Troponin I < 0.017 (0.000-0.056) ng/mL - Re-Assessments/Exams Free Text/Narrative Re-Assessment/Exam: 09/08/20 19:36 EKG was done which shows no changes from previous EKG last year. No acute findings. I reviewed his medical records and both his physical portion and nuclear portion of his stress test last month were normal. A troponin was drawn, if that is 0 I do not think his symptoms fit needing acute evaluation. If elevated he will be transferred for appropriate evaluation. 09/08/20 20:02 Patient was asymptomatic while in the emergency room and his troponin is 0. 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 Departure - Departure Time of Disposition: 20:03 Disposition: Home, Self-Care 01 Clinical Impression: Atypical chest pain Instructions: Nonspecific Chest Pain, Adult Referrals: Bony Bone MD [Primary Care Provider] - Forms: ED Department Discharge Care Plan Goals: Continue your current activity medications as prescribed. Return for reevaluation if chest pain becomes more persistent with activity or accompanied by shortness of breath or diaphoresis. Otherwise keep your appointment with the bottoming room supervisor as scheduled. Sepsis Event Note (ED) - Evaluation Sepsis Screening Result: No Definite Risk - Focused Exam Vital Signs: Vital Signs Temp Pulse Resp BP Pulse Ox 09/08/20 19:24 83 129/80 92 L 09/08/20 18:53 98.2 F 99 16 138/88 95 09/08/20 18:47 98.2 F 99 16 138/88 95 - My Orders Last 24 Hours: My Active Orders 09/08/20 19:10 EKG 12 Lead [EK] Routine - Assessment/Plan Last 24 Hours: My Active Orders 09/08/20 19:10 EKG 12 Lead [EK] Routine
== END 2020-09-08 20:13 | disposition home or self-care (01) ==
LOC: JP.ED 18:26
DX: R07.89 Other chest pain (principal); I25.10 Atherosclerotic heart disease of native coronary artery without angina pectoris; E78.00 Pure hypercholesterolemia, unspecified; I25.2 Old myocardial infarction; Z95.5 Presence of coronary angioplasty implant and graft; J45.909 Unspecified asthma, uncomplicated; Z79.82 Long term (current) use of aspirin; Z79.899 Other long term (current) drug therapy
CPT/HCPCS: 36415; 84484; 93005; 93010; 99285-25

== ENCOUNTER 2020-09-21 02:18 | Emergency (ER) | payer MEDICARE, MEDICAID ==
--- NOTE | 2020-09-21 02:27 | EDM.PDOC ---
ED HPI GENERAL MEDICAL PROBLEM - General Chief Complaint: Upper Extremity Injury/Pain Stated Complaint: LEFT ARM PAIN Time Seen by Provider: 09/21/20 02:23 Source of Information: Reports: Patient History Limitations: Reports: No Limitations - History of Present Illness INITIAL COMMENTS - FREE TEXT/NARRATIVE: Jorge Alberto is a 55-year-old male presenting to the ED for left arm pain for the last 3 days. Patient initially injured his arm while reaching up to grab a hand loop and attempt to get into a pickup truck with a lift. The patient slipped on ice causing his left arm to become hyper extended. The patient initially had severe pain and swelling of the hand but opted not to be seen at that time. Yesterday he was complaining of severe pain again opting not to be seen and then comes in tonight because of continued pain in the left arm. left forearm Pain Score (Numeric/FACES): 6 - Related Data Allergies Allergy/AdvReac Type Severity Reaction Status Date / Time No Known Allergies Allergy Verified 09/21/20 02:51 Home Meds: Home Meds Albuterol Sulfate [Proair Hfa] 2 puff IH Q4H PRN 12/01/14 [History] Albuterol [Proventil] 2.5 mg NEB Q2H PRN 12/01/14 [History] Fluticasone Propionate [Flovent HFA 220 MCG] 2 puff IH BID PRN 12/01/14 [History] Aspirin [Eder Chewable Aspirin] 81 mg PO QAM 10/03/15 [History] atorvaSTATin [Lipitor] 10 mg PO BEDTIME 02/24/16 [History] Nitroglycerin [Nitrostat] 0.4 mg SL ASDIRECTED PRN 01/10/18 [History] Metoprolol Tartrate [Lopressor] 25 mg PO BID 11/15/19 [History] Past Medical History HEENT History: Reports: Hard of Hearing, Impaired Vision 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 Cardiovascular History: Reports: CAD, High Cholesterol, Hypertension, [place], Stents Respiratory History: Reports: Asthma Genitourinary History: Reports: Urinary Incontinence Musculoskeletal History: Reports: Back Pain, Chronic, Fracture Other Musculoskeletal History: right knee pain Neurological History: Reports: Concussion, Head Trauma Dermatologic History: Reports: Cellulitis Other Dermatologic History: right ear red and swollen - Infectious Disease History Infectious Disease History: Reports: Chicken Pox - Past Surgical History Head Surgeries/Procedures: Reports: None HEENT Surgical History: Reports: None Cardiovascular Surgical History: Reports: Coronary Artery Stent Respiratory Surgical History: Reports: None Male Surgical History: Reports: None Neurological Surgical History: Reports: None Musculoskeletal Surgical History: Reports: Arthroscopic Knee, Other (See Below) Other Musculoskeletal Surgeries/Procedures:: right pointer finger Dermatological Surgical History: Reports: None Social & Family History - Family History Family Medical History: No Pertinent Family History - Caffeine Use Caffeine Use: Reports: Coffee, Soda Caffeine Use Comment: one pot of coffee per day, 32 oz of mountain dew per day - Living Situation & Occupation Living situation: Reports: with Family (lives with family in yard, has a camper stays in at night.) Review of Systems - Review of Systems Review Of Systems: See Below Constitutional: Reports: No Symptoms Musculoskeletal: Reports: Arm Pain (Sharp intermittent pain in the left forearm radiating down the left arm.), Muscle Pain (Pain and swelling over the left for earm) Skin: Reports: Bruising (On the lateral left forearm over the ulna.) Neurological: Reports: Other (Intermittent sharp pain in the left forearm) ED EXAM, GENERAL - Physical Exam Exam: See Below Exam Limited By: No Limitations General Appearance: Alert, No Apparent Distress Peripheral Pulses: 2+: Radial (L) Extremities: Normal Range of Motion, Normal Capillary Refill, Arm Pain (Tenderness to palpation over the lateral left forearm. Bruising noted with hematoma formation in the distal lateral forearm overriding the ulna with tenderness to palpation on the volar wrist at the ulna reproducing the sharp pain up the arm.). No: Joint Swelling, Limited Range of Motion, Increased Warmth, Pallor, Redness Neurological: Alert, Oriented, Normal Cognition, No Motor/Sensory Deficits Skin Exam: Ecchymosis (Lateral left forearm both proximal and distal) Course - Re-Assessments/Exams Free Text/Narrative Re-Assessment/Exam: 09/21/20 03:00 examination of the left forearm reveals what I believe is traumatic hematoma over the lateral aspect both proximal and distal. This is likely due to traumatic tearing of the muscle resulting in hematoma formation. The sharp intermittent pain is likely due to neuritis due to the hematoma formation. My recommendation is conservative treatment with anti-inflammatories like ibuprofen 400 to 600 mg every 6 hours. He may use the arm as tolerated but should avoid any heavy lifting. There is no joint or bony abnormalities on exam. I expect full recovery in 1 to 2 weeks. Indications return to the ED were discussed and patient was discharged in satisfactory condition. Departure - Departure Time of Disposition: 02:54 Disposition: Home, Self-Care 01 Condition: Good Clinical Impression: Muscle strain of left forearm Qualifiers: Encounter type: initial encounter Qualified Code(s): S56.912A - Strain of unspecified muscles, fascia and tendons at forearm level, left arm, initial encounter Traumatic hematoma of left forearm Qualifiers: Encounter type: initial encounter Qualified Code(s): S50.12XA - Contusion of left forearm, initial encounter - Discharge Information *PRESCRIPTION DRUG MONITORING PROGRAM REVIEWED*: Not Applicable *COPY OF PRESCRIPTION DRUG MONITORING REPORT IN PATIENT PARISH: Not Applicable Instructions: Contusion, [id number], Muscle Strain, [id number] Referrals: PCP,None [Primary Care Provider] - Forms: ED Department Discharge Care Plan Goals: I recommend taking ibuprofen 400 to 600 mg every 6 hours for pain and inflammation. You may also want to ice the area where you are having inflammation. You will have intermittent sharp pain due to the inflammation around the nerve, however, the ibuprofen should also help with this. You may use the arm as tolerated. I would avoid heavy lifting with the left arm for the next week. - Problem List & Annotations (1) Muscle strain of left forearm SNOMED Code(s): 606004582, 850571172 Code(s): S56.912A - STRAIN OF UNSP MUSC/FASC/TEND AT FORARM LV, LEFT ARM, INIT Status: Acute Priority: Medium Current Visit: Yes Qualifiers: Encounter type: initial encounter Qualified Code(s): S56.912A - Strain of unspecified muscles, fascia and tendons at forearm level, left arm, initial encounter (2) Traumatic hematoma of left forearm SNOMED Code(s): 25982107 Code(s): S50.12XA - CONTUSION OF LEFT FOREARM, INITIAL ENCOUNTER Status: Acute Priority: Medium Current Visit: Yes Qualifiers: Encounter type: initial encounter Qualified Code(s): S50.12XA - Contusion of left forearm, initial encounter - Problem List Review Problem List Initiated/Reviewed/Updated: Yes
[2020-09-21 02:57] VITALS: BP 157/95; PULSE 97
== END 2020-09-21 03:04 | disposition home or self-care (01) ==
LOC: JP.ED 02:18
DX: S56.912A Strain of unspecified muscles, fascia and tendons at forearm level, left arm, initial encounter (principal); S50.12XA Contusion of left forearm, initial encounter; I25.10 Atherosclerotic heart disease of native coronary artery without angina pectoris; E78.00 Pure hypercholesterolemia, unspecified; I10 Essential (primary) hypertension; I25.2 Old myocardial infarction; J45.909 Unspecified asthma, uncomplicated; Z79.82 Long term (current) use of aspirin; Z79.899 Other long term (current) drug therapy; W00.0XXA Fall on same level due to ice and snow, initial encounter
CPT/HCPCS: 99282; 99283

== ENCOUNTER 2020-09-25 13:45 | Emergency (ER) | payer MEDICARE, MEDICAID ==
[2020-09-25 14:35] VITALS: BP 156/94; PULSE 70
--- NOTE | 2020-09-25 14:52 | EDM.PDOC ---
ED HPI GENERAL MEDICAL PROBLEM - General Chief Complaint: Upper Extremity Injury/Pain Stated Complaint: LEFT ARM BRUISING AND PAIN Time Seen by Provider: 09/25/20 14:52 Source of Information: Reports: Patient History Limitations: Reports: No Limitations - History of Present Illness INITIAL COMMENTS - FREE TEXT/NARRATIVE: 55-year-old male with left arm pain. 1 week ago he slipped on the ice and grabbed something to keep from falling and felt a pull in his left arm. He was evaluated in the emergency room and found to have a hematoma in his left forearm. Now a week later he has significant bruising and pain which is very sharp radiating up to his elbow. He is having difficulty sleeping. Onset: Sudden (7 days ago) Duration: Day(s): (7 days) Location: Reports: Upper Extremity, Left Associated Symptoms: Reports: No Other Symptoms Left Lower Arm Pain Score (Numeric/FACES): 8 - Related Data Allergies Allergy/AdvReac Type Severity Reaction Status Date / Time No Known Allergies Allergy Verified 09/25/20 14:21 Home Meds: Home Meds Albuterol Sulfate [Proair Hfa] 2 puff IH Q4H PRN 12/01/14 [History] Albuterol [Proventil] 2.5 mg NEB Q2H PRN 12/01/14 [History] Fluticasone Propionate [Flovent HFA 220 MCG] 2 puff IH BID PRN 12/01/14 [History] Aspirin [Eder Chewable Aspirin] 81 mg PO QAM 10/03/15 [History] atorvaSTATin [Lipitor] 10 mg PO BEDTIME 02/24/16 [History] Nitroglycerin [Nitrostat] 0.4 mg SL ASDIRECTED PRN 01/10/18 [History] Metoprolol Tartrate [Lopressor] 25 mg PO BID 11/15/19 [History] Past Medical History HEENT History: Reports: Hard of Hearing, Impaired Vision 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 Cardiovascular History: Reports: CAD, High Cholesterol, Hypertension, [place], Stents Respiratory History: Reports: Asthma Genitourinary History: Reports: Urinary Incontinence Musculoskeletal History: Reports: Back Pain, Chronic, Fracture Other Musculoskeletal History: right knee pain Neurological History: Reports: Concussion, Head Trauma Dermatologic History: Reports: Cellulitis Other Dermatologic History: right ear red and swollen - Infectious Disease History Infectious Disease History: Reports: Chicken Pox - Past Surgical History Head Surgeries/Procedures: Reports: None HEENT Surgical History: Reports: None Cardiovascular Surgical History: Reports: Coronary Artery Stent Respiratory Surgical History: Reports: None Male Surgical History: Reports: None Neurological Surgical History: Reports: None Musculoskeletal Surgical History: Reports: Arthroscopic Knee, Other (See Below) Other Musculoskeletal Surgeries/Procedures:: right pointer finger Dermatological Surgical History: Reports: None Social & Family History - Family History Family Medical History: No Pertinent Family History - Tobacco Use Tobacco Use Status *Q: Former Tobacco User Years of Tobacco use: 19 Packs/Tins Daily: 2 Used Tobacco, but Quit: Yes Month/Year Tobacco Last Used: 05/2004 - Caffeine Use Caffeine Use: Reports: Coffee, Soda Caffeine Use Comment: one pot of coffee per day, 32 oz of mountain dew per day - Recreational Drug Use Recreational Drug Use: No - Living Situation & Occupation Living situation: Reports: with Family (lives with family in yard, has a camper stays in at night.) Review of Systems - Review of Systems Review Of Systems: See Below Constitutional: Denies: Fever Respiratory: Reports: No Symptoms Cardiovascular: Reports: No Symptoms Skin: Reports: Bruising (Significant bruising is present on the distal and flexor surface of the forearm) Neurological: Reports: Other (Neuropathic pain radiating up to the elbow especially at night). Denies: Paresthesia ED EXAM, GENERAL - Physical Exam Exam: See Below Exam Limited By: No Limitations General Appearance: Alert, No Apparent Distress Respiratory/Chest: No Respiratory Distress, Lungs Clear Cardiovascular: Regular Rate, Rhythm Extremities: Other (The left extremity does show abnormalities with bruising over the flexor and radial aspect of the wrist and forearm with tenderness to palpation. No significant swelling. Pain is increased with grasp.) Course - Vital Signs Last Recorded V/S: Last Vital Signs Temp 97.6 F 09/25/20 14:36 Pulse 70 09/25/20 14:36 Resp 20 09/25/20 14:36 BP 156/94 H 09/25/20 14:36 Pulse Ox 95 09/25/20 14:36 - Re-Assessments/Exams Free Text/Narrative Re-Assessment/Exam: 09/25/20 14:57 A left forearm x-ray was obtained which was normal. Patient was given 8 hydrocodone for extra pain control at night when trying to sleep he was encouraged to just continue increasing activity as tolerated and also continue ibuprofen. If not improving satisfactorily in 7 more days, he can return for recheck with his primary provider or orthopedics. Departure - Departure Time of Disposition: 15:20 Disposition: Home, Self-Care 01 Clinical Impression: Contusion of left forearm Qualifiers: Encounter type: initial encounter Qualified Code(s): S50.12XA - Contusion of left forearm, initial encounter - Discharge Information Instructions: Contusion, [id number] Referrals: Bony Bone MD [Primary Care Provider] - Forms: ED Department Discharge Care Plan Goals: Continue with ibuprofen, increase activity as tolerated and use hydrocodone at bedtime for extra pain control. Consider rechecking in 1 week if not improving satisfactorily. Sepsis Event Note (ED) - Evaluation Sepsis Screening Result: No Definite Risk - Focused Exam Vital Signs: Vital Signs Temp Pulse Resp BP Pulse Ox 09/25/20 14:36 97.6 F 70 20 156/94 H 95 09/25/20 14:34 97.6 F 70 20 156/94 H 95
--- NOTE | 2020-09-25 15:13 | CR ---
Forearm 2V Lt CLINICAL HISTORY: Injury FINDINGS: There is no acute fracture within the forearm. There is some spurring in the. Particular region of the radial head IMPRESSION: Negative left forearm.
== END 2020-09-25 15:20 | disposition home or self-care (01) ==
LOC: JP.ED 13:45
DX: S50.12XA Contusion of left forearm, initial encounter (principal); I25.10 Atherosclerotic heart disease of native coronary artery without angina pectoris; E78.00 Pure hypercholesterolemia, unspecified; I10 Essential (primary) hypertension; I25.2 Old myocardial infarction; J45.909 Unspecified asthma, uncomplicated; Z79.82 Long term (current) use of aspirin; Z79.899 Other long term (current) drug therapy; Z95.5 Presence of coronary angioplasty implant and graft; Z87.891 Personal history of nicotine dependence; W00.0XXA Fall on same level due to ice and snow, initial encounter; M84.30XA Stress fracture, unspecified site, initial encounter for fracture; M77.42 Metatarsalgia, left foot; M79.672 Pain in left foot
CPT/HCPCS: 73090-26-LT; 73090-LT; 73718-LT; 99283

== ENCOUNTER 2020-12-04 07:40 | Emergency (ER) | payer MEDICARE, MEDICAID ==
[2020-12-04 07:56] VITALS: BP 150/104; PULSE 75
[2020-12-04] MEDS ORDERED: Cyclobenzaprine 10 MG Tab PO ONE (08:21)
[2020-12-04] MEDS ORDERED: Ketorolac 60 MG/2 ML SDV IM ONE (08:21)
--- NOTE | 2020-12-04 08:24 | EDM.PDOC ---
ED HPI GENERAL MEDICAL PROBLEM - General Chief Complaint: Neck Problem Stated Complaint: PAIN IN ARMS AND SHOULDERS Time Seen by Provider: 12/04/20 08:17 Source of Information: Reports: Patient, RN Notes Reviewed History Limitations: Reports: No Limitations - History of Present Illness INITIAL COMMENTS - FREE TEXT/NARRATIVE: 55-year-old gentleman presents emergency department day complaint of neck pain, he states his had neck pain for the last couple of days the right is greater than the left he points to the paraspinal muscles he also complains of pain shooting down both arms. No fevers no trauma no difficulty breathing NECK Pain Score (Numeric/FACES): 10 - Related Data Allergies Allergy/AdvReac Type Severity Reaction Status Date / Time No Known Allergies Allergy Verified 12/04/20 07:51 Home Meds: Home Meds Albuterol Sulfate [Proair Hfa] 2 puff IH Q4H PRN 12/01/14 [History] Albuterol [Proventil] 2.5 mg NEB Q2H PRN 12/01/14 [History] Fluticasone Propionate [Flovent HFA 220 MCG] 2 puff IH BID PRN 12/01/14 [History] Aspirin [Eder Chewable Aspirin] 81 mg PO QAM 10/03/15 [History] atorvaSTATin [Lipitor] 10 mg PO BEDTIME 02/24/16 [History] Nitroglycerin [Nitrostat] 0.4 mg SL ASDIRECTED PRN 01/10/18 [History] Metoprolol Tartrate [Lopressor] 25 mg PO BID 11/15/19 [History] Urea [Urea 40% Crm] 28.35 gm TOP TID 12/04/20 [History] Past Medical History HEENT History: Reports: Hard of Hearing, Impaired Vision 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 Cardiovascular History: Reports: CAD, High Cholesterol, Hypertension, [place], Stents Respiratory History: Reports: Asthma Genitourinary History: Reports: Urinary Incontinence Musculoskeletal History: Reports: Back Pain, Chronic, Fracture Other Musculoskeletal History: right knee pain Neurological History: Reports: Concussion, Head Trauma Dermatologic History: Reports: Cellulitis Other Dermatologic History: right ear red and swollen - Infectious Disease History Infectious Disease History: Reports: Chicken Pox - Past Surgical History Head Surgeries/Procedures: Reports: None HEENT Surgical History: Reports: None Cardiovascular Surgical History: Reports: Coronary Artery Stent Respiratory Surgical History: Reports: None Male Surgical History: Reports: None Neurological Surgical History: Reports: None Musculoskeletal Surgical History: Reports: Arthroscopic Knee, Other (See Below) Other Musculoskeletal Surgeries/Procedures:: right pointer finger Dermatological Surgical History: Reports: None Social & Family History - Family History Family Medical History: No Pertinent Family History - Tobacco Use Tobacco Use Status *Q: Former Tobacco User Used Tobacco, but Quit: Yes Month/Year Tobacco Last Used: 1995 - Caffeine Use Caffeine Use: Reports: Coffee, Soda Caffeine Use Comment: one pot of coffee per day, 32 oz of mountain dew per day - Recreational Drug Use Recreational Drug Use: No - Living Situation & Occupation Living situation: Reports: with Family (lives with family in yard, has a camper stays in at night.) ED ROS GENERAL - Review of Systems Review Of Systems: See Below Constitutional: Reports: No Symptoms Musculoskeletal: Reports: Neck Pain, Muscle Pain ED EXAM, UPPER BACK/NECK PAIN - Physical Exam Exam: See Below Exam Limited By: No Limitations General Appearance: Alert, WD/WN, No Apparent Distress Neck Exam: Full Range of Motion, Normal Alignment, Normal Inspection, Paraspinous Muscle Tender, Tenderness, Tender Lateral. No: Spinous Processes Tender, Tender Midline Course - Vital Signs Last Recorded V/S: Last Vital Signs Temp 97.7 F 12/04/20 07:54 Pulse 75 12/04/20 07:54 Resp 18 12/04/20 07:54 BP 150/104 H 12/04/20 07:54 Pulse Ox 95 12/04/20 07:54 - Orders/Labs/Meds Meds: Medications Discontinued Medications Generic Name Dose Route Start Last Admin Trade Name Italo PRN Reason Stop Dose Admin Cyclobenzaprine HCl 10 mg 12/04/20 08:21 12/04/20 08:27 Cyclobenzaprine 10 Mg Tab PO 12/04/20 08:22 10 mg ONETIME ONE Administration Ketorolac Tromethamine 60 mg 12/04/20 08:21 12/04/20 08:27 Ketorolac 60 Mg/2 Ml Sdv IM 12/04/20 08:22 60 mg ONETIME ONE Administration Departure - Departure Time of Disposition: 09:12 Disposition: Home, Self-Care 01 Condition: Fair Clinical Impression: Neck pain - Discharge Information Referrals: Bony Bone MD [Primary Care Provider] - Forms: ED Department Discharge Additional Instructions: Continue to use the ketorolac as needed for pain control, try the Flexeril as needed for muscle spasm, please followup with your primary care provider in 3-5 days if not better, please call return to the emergency department with wor sening of symptoms. Sepsis Event Note (ED) - Evaluation Sepsis Screening Result: No Definite Risk - Focused Exam Vital Signs: Vital Signs Temp Pulse Resp BP Pulse Ox 12/04/20 07:54 97.7 F 75 18 150/104 H 95 - Assessment/Plan Plan: Assessment Acuity = acute Site and laterality = neck muscle pain Etiology = unknown Manifestations = none Location of injury = Home Lab values = none Plan Good relief combination Toradol Flexeril, prescription for Toradol 10 mg p.o. 4 times daily as needed total #20, Flexeril 10 mg p.o. 3 times daily as needed total #15 follow-up primary care 3 to 5 days if not better This note was dictated using [employer] voice recognition software please call with any questions on syntax or grammar.
== END 2020-12-04 09:19 | disposition home or self-care (01) ==
LOC: JP.ED 07:40
DX: M54.2 Cervicalgia (principal); I25.10 Atherosclerotic heart disease of native coronary artery without angina pectoris; E78.00 Pure hypercholesterolemia, unspecified; I10 Essential (primary) hypertension; I25.2 Old myocardial infarction; J45.909 Unspecified asthma, uncomplicated; Z87.891 Personal history of nicotine dependence; Z95.5 Presence of coronary angioplasty implant and graft
CPT/HCPCS: 96372; 99283; A9270; J1885

== ENCOUNTER 2021-05-20 01:20 | Emergency (ER) | payer MEDICARE, MEDICAID ==
[2021-05-20 01:39] VITALS: BP 135/84; PULSE 88
--- NOTE | 2021-05-20 01:52 | EDM.PDOC ---
ED HPI GENERAL MEDICAL PROBLEM - General Chief Complaint: ENT Problem Stated Complaint: BOTH EARS PLUGGED Time Seen by Provider: 05/20/21 01:37 Source of Information: Reports: Patient History Limitations: Reports: No Limitations - History of Present Illness INITIAL COMMENTS - FREE TEXT/NARRATIVE: Jorge Alberto is a 55-year-old male presenting to the ED for evaluation of bilateral cerumen impactions. The patient has been bothered with these impactions causing difficulty in hearing. José Miguel states that he got off work tonight at [employer] and felt like his ears were plugged so he came in to get it checked out. He reports that he cleans his ears at least once a week. He does use eardrops. He has been in several times for ear lavage. - Related Data Allergies Allergy/AdvReac Type Severity Reaction Status Date / Time No Known Allergies Allergy Verified 05/20/21 01:35 Home Meds: Home Meds Albuterol Sulfate [Proair Hfa] 2 puff IH Q4H PRN 12/01/14 [History] Albuterol [Proventil] 2.5 mg NEB Q2H PRN 12/01/14 [History] Fluticasone Propionate [Flovent HFA 220 MCG] 2 puff IH BID PRN 12/01/14 [Hi story] Aspirin [Eder Chewable Aspirin] 81 mg PO QAM 10/03/15 [History] atorvaSTATin [Lipitor] 10 mg PO BEDTIME 02/24/16 [History] Nitroglycerin [Nitrostat] 0.4 mg SL ASDIRECTED PRN 01/10/18 [History] Metoprolol Tartrate [Lopressor] 25 mg PO BID 11/15/19 [History] Urea [Urea 40% Crm] 28.35 gm TOP TID 12/04/20 [History] Past Medical History HEENT History: Reports: Hard of Hearing, Impaired Vision 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 Cardiovascular History: Reports: CAD, High Cholesterol, Hypertension, [place], Stents Respiratory History: Reports: Asthma Genitourinary History: Reports: Urinary Incontinence Musculoskeletal History: Reports: Back Pain, Chronic, Fracture Other Musculoskeletal History: right knee pain Neurological History: Reports: Concussion, Head Trauma Dermatologic History: Reports: Cellulitis Other Dermatologic History: right ear red and swollen - Infectious Disease History Infectious Disease History: Reports: Chicken Pox - Past Surgical History Head Surgeries/Procedures: Reports: None HEENT Surgical History: Reports: None Cardiovascular Surgical History: Reports: Coronary Artery Stent Respiratory Surgical History: Reports: None Male Surgical History: Reports: None Neurological Surgical History: Reports: None Musculoskeletal Surgical History: Reports: Arthroscopic Knee, Other (See Below) Other Musculoskeletal Surgeries/Procedures:: right pointer finger Dermatological Surgical History: Reports: None Social & Family History - Family History Family Medical History: No Pertinent Family History - Caffeine Use Caffeine Use: Reports: Coffee, Soda Caffeine Use Comment: one pot of coffee per day, 32 oz of mountain dew per day - Living Situation & Occupation Living situation: Reports: with Family (lives with family in yard, has a camper stays in at night.) ED ROS ENT - Review of Systems Review Of Systems: See Below Constitutional: Reports: No Symptoms HEENT: Reports: Other (Ears feel plugged and decreased hearing) ED EXAM, ENT - Physical Exam Exam: See Below Exam Limited By: No Limitations General Appearance: Alert, No Apparent Distress Ears: Canal Material (Cerumen impaction in both ears) Course - Vital Signs Last Recorded V/S: Last Vital Signs Temp 36.4 C 05/20/21 01:39 Pulse 88 05/20/21 01:39 Resp 19 05/20/21 01:39 BP 135/84 05/20/21 01:39 Pulse Ox 97 05/20/21 01:39 - Re-Assessments/Exams Free Text/Narrative Re-Assessment/Exam: 05/20/21 01:58 I attempted to disimpact cerumen from both ear canals. A copious amount of cerumen was removed using an ear loop and ear curette. Despite this, there was additional cerumen packed up against the tympanic membranes. These were removed by the use of water lavage in the ear. There was no sign of i nfection. Departure - Departure Time of Disposition: 01:59 Disposition: Home, Self-Care 01 Clinical Impression: Impacted cerumen of both ears - Discharge Information Instructions: Earwax Buildup, Adult, Ear Irrigation Referrals: Bony Bone MD [Primary Care Provider] - Forms: ED Department Discharge Care Plan Goals: I would recommend getting Murine eardrops and using them every other day to help keep the earwax under control. Sepsis Event Note (ED) - Focused Exam Vital Signs: Vital Signs Temp Pulse Resp BP Pulse Ox 09/30/21 01:39 36.4 C 88 19 135/84 97 - Problem List & Annotations (1) Impacted cerumen of both ears SNOMED Code(s): 95253008 Code(s): H61.23 - IMPACTED CERUMEN, BILATERAL Status: Acute Priority: Low Current Visit: Yes - Problem List Review Problem List Initiated/Reviewed/Updated: Yes
== END 2021-05-20 02:31 | disposition home or self-care (01) ==
LOC: JP.ED 01:20
DX: H61.23 Impacted cerumen, bilateral (principal); I25.10 Atherosclerotic heart disease of native coronary artery without angina pectoris; E78.00 Pure hypercholesterolemia, unspecified; I25.2 Old myocardial infarction; I10 Essential (primary) hypertension; Z95.5 Presence of coronary angioplasty implant and graft; Z79.82 Long term (current) use of aspirin; Z79.899 Other long term (current) drug therapy
CPT/HCPCS: 69210; 99282-25

== ENCOUNTER 2021-06-24 08:28 | Day surgery (SDC) | payer MEDICARE, MEDICAID ==
[2021-06-24] MEDS ORDERED: Midazolam 1 MG/ML 2 ML SDV ONE (08:49)
[2021-06-24] MEDS ORDERED: Propofol 200 MG/20 ML SDV ONE (08:49)
[2021-06-24] MEDS ORDERED: fentaNYL 100 MCG/2 ML SDV ONE (08:49)
[2021-06-24] MEDS ORDERED: Sodium Chloride 0.9% 1,000 ML IV SCH (09:00)
--- NOTE | 2021-06-24 11:31 | OR ---
DATE OF PROCEDURE: 06/24/2021 SURGEON: Evan Irizarry MD PROCEDURE: Colonoscopy. FINDINGS: Sigmoid polypoid-like lesion, approximately 3 mm, completely removed using hot snare wire device. COMPLICATIONS: None. 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 ANESTHESIA: MAC. PREOPERATIVE DIAGNOSIS: Screening colonoscopy. POSTOPERATIVE DIAGNOSIS: Screening colonoscopy. RISKS: Risks, benefits, alternatives, and limitations including, but not limited to infection, bleeding, perforation, false positives and false negatives were explained to the patient who wished to proceed. PROCEDURE IN DETAIL: The patient was placed in left lateral decubitus position. Digital rectal exam was performed without abnormality. Scope was introduced and advanced atraumatically to the ileocecal valve. A photo was taken of the appendiceal orifice. Scope was brought back to the ascending, transverse, descending colon, and retroflexed. The aforementioned polyp was identified and completely removed. The patient also has some diverticulosis which was very mild without evidence of diverticulitis or bleeding. No abnormalities on retroflexion. Greater than 8 minutes was spent removing the scope. Prep was acceptable, approximately 85% to 90% of the luminal surface could be seen. The patient tolerated the procedure well. Evan Irizarry MD /[id number]
[2021-06-24 12:35] VITALS: BP 125/79; PULSE 82
== END 2021-06-24 13:43 | disposition home or self-care (01) ==
LOC: JP.SDS 08:28
PROVIDERS: ATTEND Surgery
DX: Z12.11 Encounter for screening for malignant neoplasm of colon (principal); K63.5 Polyp of colon; K57.30 Diverticulosis of large intestine without perforation or abscess without bleeding; G47.33 Obstructive sleep apnea (adult) (pediatric); J45.909 Unspecified asthma, uncomplicated
CPT/HCPCS: 45385; 88305; J2250; J2704; J3010; J7030

== ENCOUNTER 2021-08-24 07:55 | Emergency (ER) | payer MEDICARE, MEDICAID ==
[2021-08-24 08:08] VITALS: BP 155/77; PULSE 88
[2021-08-24] MEDS ORDERED: Colchicine 0.6 MG Tab PO ONE ×2 (08:30→08:31)
--- NOTE | 2021-08-24 08:36 | EDM.PDOC ---
ED HPI GENERAL MEDICAL PROBLEM - General Chief Complaint: Lower Extremity Injury/Pain Stated Complaint: BOTTOM OF L FOOT RED AND SWOLLEN Time Seen by Provider: 08/24/21 08:18 Source of Information: Reports: Patient, RN Notes Reviewed History Limitations: Reports: No Limitations - History of Present Illness INITIAL COMMENTS - FREE TEXT/NARRATIVE: 56-year-old gentleman presents emergency department today complaint of painful great toe on the left side states is developed over the last couple days is red and warm very tender to the touch he is wearing a boot because he cannot wear shoe. Left Foot Pain Score (Numeric/FACES): 9 - Related Data Allergies Allergy/AdvReac Type Severity Reaction Status Date / Time No Known Allergies Allergy Verified 08/24/21 08:10 Home Meds: Home Meds Albuterol Sulfate [Proair Hfa] 2 puff IH Q4H PRN 12/01/14 [History] Albuterol [Proventil] 2.5 mg NEB Q2H PRN 12/01/14 [History] Fluticasone Propionate [Flovent HFA 220 MCG] 2 puff IH BID PRN 12/01/14 [History] Aspirin [Eder Chewable Aspirin] 81 mg PO QAM 10/03/15 [History] atorvaSTATin [Lipitor] 10 mg PO BEDTIME 02/24/16 [History] Nitroglycerin [Nitrostat] 0.4 mg SL ASDIRECTED PRN 01/10/18 [History] Metoprolol Tartrate [Lopressor] 25 mg PO BID 11/15/19 [History] Urea [Urea 40% Crm] 28.35 gm TOP TID 12/04/20 [History] Acetaminophen [Acetaminophen Extra Strength] 500 mg PO Q6HR PRN 06/22/21 [History] Past Medical History HEENT History: Reports: Hard of Hearing, Impaired Vision 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 Cardiovascular History: Reports: CAD, High Cholesterol, Hypertension, [place], Stents Respiratory History: Reports: Asthma Gastrointestinal History: Reports: Colon Polyp Genitourinary History: Reports: Urinary Incontinence Musculoskeletal History: Reports: Back Pain, Chronic, Fracture Other Musculoskeletal History: right knee pain Neurological History: Reports: Concussion, Head Trauma Dermatologic History: Reports: Cellulitis, Other (See Below) Other Dermatologic History: right ear red and swollen - Infectious Disease History Infectious Disease History: Reports: Chicken Pox - Past Surgical History Head Surgeries/Procedures: Reports: None Cardiovascular Surgical History: Reports: Coronary Artery Stent GI Surgical History: Reports: Colonoscopy Musculoskeletal Surgical History: Reports: Arthroscopic Knee, Other (See Below) Other Musculoskeletal Surgeries/Procedures:: right pointer finger Dermatological Surgical History: Reports: Skin Graft Social & Family History - Family History Family Medical History: No Pertinent Family History - Tobacco Use Tobacco Use Status *Q: Never Tobacco User - Caffeine Use Caffeine Use: Reports: Coffee, Soda Caffeine Use Comment: one pot of coffee per day, 32 oz of mountain dew per day - Recreational Drug Use Recreational Drug Use: No - Living Situation & Occupation Living situation: Reports: with Family (lives with family in yard, has a camper stays in at night.) Review of Systems - Review of Systems Review Of Systems: See Below Musculoskeletal: Reports: Foot Pain ED EXAM, GENERAL - Physical Exam Exam: See Below Free Text/Narrative:: Examination foot I do appreciate some erythema over the great toe MCP joint left side it is tender to the touch it is warm to the touch pedal pulses +2 dragon claw toenails Exam Limited By: No Limitations General Appearance: Alert, WD/WN, No Apparent Distress Course - Vital Signs Last Recorded V/S: Last Vital Signs Temp 98 F 08/24/21 08:09 Pulse 88 08/24/21 08:09 Resp 16 08/24/21 08:09 BP 155/77 H 08/24/21 08:09 Pulse Ox 96 08/24/21 08:09 - Orders/Labs/Meds Meds: Medications Discontinued Medications Generic Name Dose Route Start Last Admin Trade Name Italo PRN Reason Stop Dose Admin Colchicine 1.2 mg 08/24/21 08:30 Colchicine 0.6 Mg Tab PO 08/24/21 08:31 ONETIME ONE Colchicine 0.6 mg 08/24/21 08:31 Colchicine 0.6 Mg Tab PO 08/24/21 08:32 ONETIME ONE Departure - Departure Time of Disposition: 08:35 Disposition: Home, Self-Care 01 Condition: Fair Clinical Impression: Gout attack Qualifiers: Gout site: toe Gout etiology: unspecified cause Laterality: left Qualified Code(s): M10.9 - Gout, unspecified - Discharge Information Instructions: Gout Referrals: Bony Bone MD [Primary Care Provider] - Forms: ED Department Discharge, ED Return to Work/School Form Additional Instructions: Take the colchicine tablet in 1 hour, if this does not improve your pain within 8 hours please follow-up with your primary care in the next 2 to 3 days for reevaluation, call or return to the emergency department worsening of symptoms Sepsis Event Note (ED) - Evaluation Sepsis Screening Result: No Definite Risk - Focused Exam Vital Signs: Vital Signs Temp Pulse Resp BP Pulse Ox 08/24/21 08:09 98 F 88 16 155/77 H 96 08/24/21 08:07 98 F 88 16 155/77 H 96 - Assessment/Plan Plan: Assessment Acuity = acute Site and laterality = gout great toe left foot Etiology = unknown Manifestations = none Location of injury = Home Lab values = none Plan Do a trial of colchicine 1.2 mg now and in 1 hour 0.6 mg 7 follow-up primary care in 2 to 3 days for reevaluation if no improvement This note was dictated using [employer] voice recognition software please call with any questions on syntax or grammar.
== END 2021-08-24 09:25 | disposition home or self-care (01) ==
LOC: JP.ED 07:55
DX: M10.9 Gout, unspecified (principal); I25.10 Atherosclerotic heart disease of native coronary artery without angina pectoris; E78.00 Pure hypercholesterolemia, unspecified; I10 Essential (primary) hypertension; I25.2 Old myocardial infarction; Z95.5 Presence of coronary angioplasty implant and graft; Z79.82 Long term (current) use of aspirin; Z79.899 Other long term (current) drug therapy
CPT/HCPCS: 99283; A9270

== ENCOUNTER 2021-09-07 07:31 | Emergency (ER) | payer MEDICARE, MEDICAID ==
[2021-09-07 07:51] VITALS: BP 140/78; PULSE 80
== END 2021-09-07 09:13 | disposition home or self-care (01) ==
LOC: JP.ED 07:31
DX: B35.3 Tinea pedis (principal); I25.10 Atherosclerotic heart disease of native coronary artery without angina pectoris; E78.00 Pure hypercholesterolemia, unspecified; I10 Essential (primary) hypertension; I25.2 Old myocardial infarction; Z95.5 Presence of coronary angioplasty implant and graft; Z79.82 Long term (current) use of aspirin; Z79.899 Other long term (current) drug therapy
CPT/HCPCS: 73630-26-LT; 73630-LT; 99283-25

== ENCOUNTER 2021-09-15 20:52 | Emergency (ER) | payer MEDICARE, MEDICAID ==
[2021-09-15 21:55] VITALS: BP 127/82; PULSE 69
[2021-09-15] MEDS ORDERED: Bacitracin Oint 1 GM U/D Packet TOP ONE (22:19)
== END 2021-09-15 23:09 | disposition home or self-care (01) ==
LOC: JP.ED 20:52
DX: L76.22 Postprocedural hemorrhage of skin and subcutaneous tissue following other procedure (principal); I25.10 Atherosclerotic heart disease of native coronary artery without angina pectoris; E78.00 Pure hypercholesterolemia, unspecified; I10 Essential (primary) hypertension; I25.2 Old myocardial infarction; Z95.5 Presence of coronary angioplasty implant and graft; Z79.82 Long term (current) use of aspirin; Z79.899 Other long term (current) drug therapy
CPT/HCPCS: 99283

== ENCOUNTER 2022-06-28 22:07 | Emergency (ER) | payer MEDICARE, MEDICAID ==
[2022-06-28 23:08] VITALS: BP 134/77; PULSE 87
[2022-06-28] MEDS ORDERED: Ciprofloxacin 500 MG Tab PO ONE (23:44)
[2022-06-28] MEDS ORDERED: Doxycycline 100 MG Cap PO ONE (23:44)
== END 2022-06-29 02:19 | disposition home or self-care (01) ==
LOC: JP.ED 22:07
DX: L03.116 Cellulitis of left lower limb (principal); B35.3 Tinea pedis; B35.1 Tinea unguium; I25.10 Atherosclerotic heart disease of native coronary artery without angina pectoris; E78.00 Pure hypercholesterolemia, unspecified; I10 Essential (primary) hypertension; I25.2 Old myocardial infarction; J45.909 Unspecified asthma, uncomplicated; Z87.891 Personal history of nicotine dependence; Z79.82 Long term (current) use of aspirin; Z79.899 Other long term (current) drug therapy
CPT/HCPCS: 36415; 73630; 80048; 85025; 85651; 86140; 93971; 99284; A9270

== ENCOUNTER 2023-02-19 21:19 | Emergency (ER) | payer MEDICARE, MEDICAID ==
[2023-02-19 23:51] VITALS: BP 142/87; PULSE 81
== END 2023-02-20 00:34 | disposition home or self-care (01) ==
LOC: JP.ED 21:19
DX: H60.93 Unspecified otitis externa, bilateral (principal); H61.23 Impacted cerumen, bilateral; I25.10 Atherosclerotic heart disease of native coronary artery without angina pectoris; I11.0 Hypertensive heart disease with heart failure; I50.9 Heart failure, unspecified; I25.2 Old myocardial infarction; Z95.5 Presence of coronary angioplasty implant and graft; J45.909 Unspecified asthma, uncomplicated; Z79.51 Long term (current) use of inhaled steroids; Z79.82 Long term (current) use of aspirin; Z79.899 Other long term (current) drug therapy
CPT/HCPCS: 99282

== ENCOUNTER 2023-03-13 23:01 | Emergency (ER) | payer MEDICARE, MEDICAID ==
[2023-03-13 23:45] LABS: BASOPHILS PERCENT AUTO 0.4 % (0.1-1.3); EOSINOPHILS PERCENT AUTO 0.4 % (0.0-5.4); HEMATOCRIT 37.8 % (38.4-49.7); HEMOGLOBIN 12.7 g/dL (12.9-16.9); IMMATURE GRAN PERCENT AUTO 0.2 % (0.0-0.7); LYMPHOCYTES ABSOLUTE AUTO 0.77 K/uL (0.8-3.3); LYMPHOCYTES PERCENT AUTO 14.8 % (11.4-47.7); MEAN CORPUSCULAR HEMOGLOBIN 28.7 pg (31.6-35.5); MEAN CORPUSCULAR HGB CONC 33.6 g/dL (31.6-35.5); MEAN CORPUSCULAR VOLUME 85.5 fL (81.4-99.0); MONOCYTES ABSOLUTE AUTO 1.62 K/uL (0.20-0.90); MONOCYTES PERCENT AUTO 31.2 % (3.3-12.6); NEUTROPHILS ABSOLUTE AUTO 2.76 K/uL (1.0-7.6); PLATELET COUNT,PLT 200 K/uL (130-375); RED BLOOD CELL COUNT 4.42 M/uL (4.14-5.76); WHITE BLOOD CELL COUNT,WBC 5.2 K/uL (3.2-11.0)
[2023-03-13 23:49] LABS: BASOPHILS ABSOLUTE AUTO 0.02 K/uL (0.00-0.10); EOSINOPHILS ABSOLUTE AUTO 0.02 K/uL (0.00-0.40); IMMATURE GRAN ABSOLUTE AUTO 0.01 K/uL (0.00-0.23)
[2023-03-14 00:02] LABS: CALCIUM 8.5 mg/dL (8.5-10.1); CREATININE 1.1 mg/dL (0.8-1.3); EST CRCL DRUG DOSING (CG) 83.28 mL/min; POTASSIUM,K 3.2 mmol/L (3.6-5.2)
[2023-03-14 00:09] LABS: ANION GAP 12.2 mmol/L (5.0-14.0)
[2023-03-14 00:44] VITALS: BP 121/76; PULSE 80
== END 2023-03-14 00:44 | disposition home or self-care (01) ==
LOC: JP.ED 23:01
DX: U07.1 COVID-19 (principal); I11.0 Hypertensive heart disease with heart failure; I50.9 Heart failure, unspecified; I25.2 Old myocardial infarction; E78.00 Pure hypercholesterolemia, unspecified; I25.10 Atherosclerotic heart disease of native coronary artery without angina pectoris; J45.909 Unspecified asthma, uncomplicated; Z79.899 Other long term (current) drug therapy; Z79.82 Long term (current) use of aspirin
CPT/HCPCS: 36415; 80048; 85025; 99284; U0002; 99283

== ENCOUNTER 2023-11-07 06:19 | Emergency (ER) | payer MEDICARE, MEDICAID ==
[2023-11-07 07:39] LABS: BASOPHILS ABSOLUTE AUTO 0.06 K/uL (0.00-0.10); BASOPHILS PERCENT AUTO 0.9 % (0.1-1.3); EOSINOPHILS ABSOLUTE AUTO 0.16 K/uL (0.00-0.40); EOSINOPHILS PERCENT AUTO 2.4 % (0.0-5.4); HEMATOCRIT 40.3 % (38.4-49.7); HEMOGLOBIN 13.7 g/dL (12.9-16.9); IMMATURE GRAN PERCENT AUTO 0.2 % (0.0-0.7); LYMPHOCYTES ABSOLUTE AUTO 1.66 K/uL (0.8-3.3); LYMPHOCYTES PERCENT AUTO 25.1 % (11.4-47.7); MEAN CORPUSCULAR HEMOGLOBIN 28.8 pg (31.6-35.5); MEAN CORPUSCULAR VOLUME 84.7 fL (81.4-99.0); MONOCYTES ABSOLUTE AUTO 0.86 K/uL (0.20-0.90); NEUTROPHILS ABSOLUTE AUTO 3.86 K/uL (1.0-7.6); NEUTROPHILS PERCENT AUTO 58.4 % (40.0-78.1); PLATELET COUNT,PLT 272 K/uL (130-375); RED BLOOD CELL COUNT 4.76 M/uL (4.14-5.76); WHITE BLOOD CELL COUNT,WBC 6.6 K/uL (3.2-11.0)
[2023-11-07 07:42] LABS: IMMATURE GRAN ABSOLUTE AUTO 0.01 K/uL (0.00-0.23)
[2023-11-07] MEDS: Ondansetron 4 MG Tab.DIS PO ONE (07:47)
[2023-11-07 08:03] LABS: ALANINE AMINOTRANSFERASE,ALT 38 U/L (12-78); ALBUMIN 3.6 g/dL (3.4-5.0); ALKALINE PHOSPHATASE 98 U/L (46-116); ANION GAP 6.9 mmol/L (5.0-14.0); BILIRUBIN TOTAL 0.5 mg/dL (0.2-1.0); BLOOD UREA NITROGEN,BUN 18 mg/dL (7-18); CALCIUM 9.1 mg/dL (8.5-10.1); CARBON DIOXIDE,CO2 30 mmol/L (21-32); CHLORIDE,CL 103 mmol/L (100-108); EST CRCL DRUG DOSING (CG) 90.53 mL/min; ESTIMATED GFR 88 mL/min (>60); GLUCOSE RANDOM 96 mg/dL (74-106); PROTEIN TOTAL,TP 7.4 g/dL (6.4-8.2); SODIUM,NA 140 mmol/L (140-148); TROPONIN I HIGH SENSITIVITY 6.4 pg/mL (<=60.3)
[2023-11-07] MEDS: Aspirin 81 MG Tab.Chew PO ONE (08:21)
[2023-11-07 08:22] LABS: CORONAVIRUS COVID-19 NAA NEGATIVE (NEGATIVE); INFLUENZA A NAA NEGATIVE (NEGATIVE); INFLUENZA B NAA NEGATIVE (NEGATIVE); RESPIRATORY SYNCYTIAL VIR NAA NEGATIVE (NEGATIVE)
[2023-11-07] MEDS: Famotidine 20 MG Tab PO ONE (08:22)
[2023-11-07 09:03] LABS: ASPARTATE AMNIOTRANSFERASE,AST 32 U/L (15-37)
[2023-11-07 10:34] VITALS: BP 125/83; PULSE 66
== END 2023-11-07 10:39 | disposition home or self-care (01) ==
LOC: JP.ED 06:19
DX: K21.9 Gastro-esophageal reflux disease without esophagitis (principal); I25.2 Old myocardial infarction; Z86.16 Personal history of COVID-19; Z95.5 Presence of coronary angioplasty implant and graft; Z79.899 Other long term (current) drug therapy; Z79.82 Long term (current) use of aspirin
CPT/HCPCS: 0241U; 36415; 71045; 80053; 83605; 83690; 84484; 85025; 87651; 93005; 99285; A9270; Q0162; 93010

== ENCOUNTER 2023-11-11 23:38 | Emergency (ER) | payer MEDICARE, MEDICAID ==
[2023-11-12] MEDS: Ondansetron 4 MG Tab.DIS PO ONE (00:16)
[2023-11-12 00:17] VITALS: BP 147/87; PULSE 89
[2023-11-12 00:24] LABS: BASOPHILS ABSOLUTE AUTO 0.04 K/uL (0.00-0.10); BASOPHILS PERCENT AUTO 0.3 % (0.1-1.3); EOSINOPHILS ABSOLUTE AUTO 0.09 K/uL (0.00-0.40); EOSINOPHILS PERCENT AUTO 0.7 % (0.0-5.4); HEMATOCRIT 42.6 % (38.4-49.7); HEMOGLOBIN 14.6 g/dL (12.9-16.9); IMMATURE GRAN ABSOLUTE AUTO 0.06 K/uL (0.00-0.23); IMMATURE GRAN PERCENT AUTO 0.4 % (0.0-0.7); LYMPHOCYTES ABSOLUTE AUTO 0.43 K/uL (0.8-3.3); LYMPHOCYTES PERCENT AUTO 3.2 % (11.4-47.7); MEAN CORPUSCULAR HEMOGLOBIN 28.9 pg (31.6-35.5); MEAN CORPUSCULAR HGB CONC 34.3 g/dL (31.6-35.5); MEAN CORPUSCULAR VOLUME 84.2 fL (81.4-99.0); MONOCYTES ABSOLUTE AUTO 0.91 K/uL (0.20-0.90); MONOCYTES PERCENT AUTO 6.8 % (3.3-12.6); NEUTROPHILS ABSOLUTE AUTO 11.94 K/uL (1.0-7.6); NEUTROPHILS PERCENT AUTO 88.6 % (40.0-78.1); PLATELET COUNT,PLT 249 K/uL (130-375); RED BLOOD CELL COUNT 5.06 M/uL (4.14-5.76); WHITE BLOOD CELL COUNT,WBC 13.5 K/uL (3.2-11.0)
[2023-11-12 00:48] LABS: ALANINE AMINOTRANSFERASE,ALT 38 U/L (12-78); ALBUMIN 3.9 g/dL (3.4-5.0); ALKALINE PHOSPHATASE 95 U/L (46-116); ASPARTATE AMNIOTRANSFERASE,AST 30 U/L (15-37); BLOOD UREA NITROGEN,BUN 16 mg/dL (7-18); CALCIUM 9.2 mg/dL (8.5-10.1); CARBON DIOXIDE,CO2 28 mmol/L (21-32); CHLORIDE,CL 103 mmol/L (100-108); EST CRCL DRUG DOSING (CG) 90.53 mL/min; ESTIMATED GFR 88 mL/min (>60); GLUCOSE RANDOM 124 mg/dL (74-106); POTASSIUM,K 4.1 mmol/L (3.6-5.2); PROTEIN TOTAL,TP 7.7 g/dL (6.4-8.2); SODIUM,NA 139 mmol/L (140-148)
[2023-11-12 00:49] LABS: ANION GAP 12.1 mmol/L (5.0-14.0)
[2023-11-12 01:02] LABS: CORONAVIRUS COVID-19 NAA NEGATIVE (NEGATIVE); INFLUENZA A NAA NEGATIVE (NEGATIVE); INFLUENZA B NAA NEGATIVE (NEGATIVE); RESPIRATORY SYNCYTIAL VIR NAA NEGATIVE (NEGATIVE)
[2023-11-12] MEDS: Pantoprazole 40 MG Tab.CR PO STA (01:17)
[2023-11-12] MEDS: Alum Hydrox/Mag Hydrox/Simeth 15 ML, Lidocaine 2% 15 ML PO ONE (01:17)
[2023-11-12 01:21] LABS: LACTIC ACID 0.9 mmol/L (0.4-2.0)
[2023-11-12 03:03] LABS: BILIRUBIN,URINE NEGATIVE (NEGATIVE); COLOR,URINE YELLOW (YELLOW); GLUCOSE,URINE NEGATIVE (NEGATIVE); KETONES,URINE NEGATIVE (NEGATIVE); LEUKOCYTE ESTERASE,URINE NEGATIVE (NEGATIVE); NITRITE,URINE NEGATIVE (NEGATIVE); OCCULT BLOOD,URINE LARGE (NEGATIVE); PROTEIN,URINE NEGATIVE (NEGATIVE); UROBILINOGEN,URINE 0.2 EU/dL (0.2-1.0)
[2023-11-12 03:13] LABS: AMORPHOUS SEDIMENT,URINE NOT SEEN; APPEARANCE,URINE SLIGHTLY CLOUDY (CLEAR); BACTERIA,URINE FEW; EPITHELIAL CELLS,URINE NOT SEEN; MUCUS,URINE NOT SEEN; WBC,URINE 0-5 (0-5)
== END 2023-11-12 05:16 | disposition home or self-care (01) ==
LOC: JP.ED 23:38
DX: K21.9 Gastro-esophageal reflux disease without esophagitis (principal); R31.9 Hematuria, unspecified; I25.2 Old myocardial infarction; J45.909 Unspecified asthma, uncomplicated; Z95.5 Presence of coronary angioplasty implant and graft; Z87.891 Personal history of nicotine dependence; Z86.16 Personal history of COVID-19; Z79.51 Long term (current) use of inhaled steroids; Z79.82 Long term (current) use of aspirin; Z79.899 Other long term (current) drug therapy
CPT/HCPCS: 0241U; 36415; 71046; 74176; 80053; 81001; 83605; 83690; 84484; 85025; 93005; 99285; A9270; Q0162

== ENCOUNTER 2024-02-25 19:36 | Emergency (ER) | payer MEDICARE, OTHER ==
[2024-02-25 20:04] VITALS: BP 144/86; PULSE 99
== END 2024-02-25 20:40 | disposition home or self-care (01) ==
LOC: JP.ED 19:36
DX: J44.1 Chronic obstructive pulmonary disease with (acute) exacerbation (principal); I25.2 Old myocardial infarction; Z95.5 Presence of coronary angioplasty implant and graft; Z87.891 Personal history of nicotine dependence; Z79.899 Other long term (current) drug therapy; Z79.82 Long term (current) use of aspirin
CPT/HCPCS: 99283

== ENCOUNTER 2024-02-29 03:43 | Emergency (ER) | payer MEDICAID, MEDICARE ==
[2024-02-29 04:15] LABS: BASOPHILS PERCENT AUTO 0.1 % (0.1-1.3); HEMATOCRIT 38.4 % (38.4-49.7); HEMOGLOBIN 13.3 g/dL (12.9-16.9); IMMATURE GRAN ABSOLUTE AUTO 0.12 K/uL (0.00-0.23); IMMATURE GRAN PERCENT AUTO 0.8 % (0.0-0.7); LYMPHOCYTES PERCENT AUTO 10.2 % (11.4-47.7); MEAN CORPUSCULAR HEMOGLOBIN 29.2 pg (31.6-35.5); MEAN CORPUSCULAR HGB CONC 34.6 g/dL (31.6-35.5); MEAN CORPUSCULAR VOLUME 84.2 fL (81.4-99.0); MONOCYTES ABSOLUTE AUTO 1.49 K/uL (0.20-0.90); MONOCYTES PERCENT AUTO 9.5 % (3.3-12.6); NEUTROPHILS ABSOLUTE AUTO 12.51 K/uL (1.0-7.6); NEUTROPHILS PERCENT AUTO 79.4 % (40.0-78.1); PLATELET COUNT,PLT 304 K/uL (130-375); RED BLOOD CELL COUNT 4.56 M/uL (4.14-5.76); WHITE BLOOD CELL COUNT,WBC 15.7 K/uL (3.2-11.0)
[2024-02-29 04:17] LABS: BASOPHILS ABSOLUTE AUTO 0.02 K/uL (0.00-0.10)
[2024-02-29 04:33] LABS: ALANINE AMINOTRANSFERASE,ALT 29 U/L (12-78); ALBUMIN 3.7 g/dL (3.4-5.0); ALKALINE PHOSPHATASE 110 U/L (46-116); ASPARTATE AMNIOTRANSFERASE,AST 20 U/L (15-37); BILIRUBIN TOTAL 0.3 mg/dL (0.2-1.0); BLOOD UREA NITROGEN,BUN 21 mg/dL (7-18); CALCIUM 8.4 mg/dL (8.5-10.1); CARBON DIOXIDE,CO2 30 mmol/L (21-32); CHLORIDE,CL 102 mmol/L (100-108); CREATININE 1.3 mg/dL (0.8-1.3); EST CRCL DRUG DOSING (CG) 69.64 mL/min; ESTIMATED GFR 64 mL/min (>60); GLUCOSE RANDOM 154 mg/dL (74-106); POTASSIUM,K 3.5 mmol/L (3.6-5.2); PROTEIN TOTAL,TP 7.6 g/dL (6.4-8.2); SODIUM,NA 138 mmol/L (140-148)
[2024-02-29 04:35] LABS: ANION GAP 9.5 mmol/L (5.0-14.0)
[2024-02-29 05:48] VITALS: BP 136/80; PULSE 92
[2024-02-29 06:16] LABS: AMPHETAMINES SCREEN, URINE NEGATIVE (NEGATIVE); BARBITURATE SCREEN,URINE NEGATIVE (NEGATIVE); BENZODIAZEPINES SCREEN,URINE NEGATIVE (NEGATIVE); METHADONE SCREEN, URINE NEGATIVE (NEGATIVE); METHAMPHETAMINES SCREEN, URINE NEGATIVE (NEGATIVE); OXYCODONE SCREEN,URINE NEGATIVE (NEGATIVE); PROPOXYPHENE SCREEN,URINE NEGATIVE (NEGATIVE); THC SCREEN,URINE 50 NG/ML PRESUMPTIVE POSITIVE (NEGATIVE)
== END 2024-02-29 07:19 | disposition home or self-care (01) ==
LOC: JP.ED 03:43
DX: T50.901A Poisoning by unspecified drugs, medicaments and biological substances, accidental (unintentional), initial encounter (principal); J45.909 Unspecified asthma, uncomplicated; I25.2 Old myocardial infarction; Z86.16 Personal history of COVID-19; Z87.891 Personal history of nicotine dependence; Z95.5 Presence of coronary angioplasty implant and graft; Z79.82 Long term (current) use of aspirin; Z79.899 Other long term (current) drug therapy
CPT/HCPCS: 36415; 80053; 80305-QW; 80307; 83605; 85025; 93005; 93010; 99283; 99285

== ENCOUNTER 2024-04-17 06:28 | Emergency (ER) | payer MEDICARE ==
[2024-04-17 06:58] VITALS: BP 132/72; PULSE 75
[2024-04-17] MEDS: Ketorolac 30 MG/ML SDV IM ONE (07:34)
== END 2024-04-17 08:13 | disposition home or self-care (01) ==
LOC: JP.ED 06:28
DX: L03.116 Cellulitis of left lower limb (principal); I25.2 Old myocardial infarction; Z86.16 Personal history of COVID-19; Z95.5 Presence of coronary angioplasty implant and graft; Z79.82 Long term (current) use of aspirin; Z79.51 Long term (current) use of inhaled steroids; Z87.891 Personal history of nicotine dependence
CPT/HCPCS: 73660; 96372; 99283; J1885

== ENCOUNTER 2024-09-10 19:57 | Emergency (ER) | payer MEDICARE ==
[2024-09-10 21:57] LABS: BASOPHILS ABSOLUTE AUTO 0.03 K/uL (0.00-0.10); BASOPHILS PERCENT AUTO 0.6 % (0.1-1.3); EOSINOPHILS PERCENT AUTO 2.1 % (0.0-5.4); HEMATOCRIT 42.7 % (38.4-49.7); HEMOGLOBIN 14.8 g/dL (12.9-16.9); IMMATURE GRAN ABSOLUTE AUTO 0.01 K/uL (0.00-0.23); IMMATURE GRAN PERCENT AUTO 0.2 % (0.0-0.7); LYMPHOCYTES ABSOLUTE AUTO 1.43 K/uL (0.8-3.3); MEAN CORPUSCULAR HEMOGLOBIN 29.1 pg (31.6-35.5); MEAN CORPUSCULAR HGB CONC 34.7 g/dL (31.6-35.5); MEAN CORPUSCULAR VOLUME 83.9 fL (81.4-99.0); MONOCYTES ABSOLUTE AUTO 0.78 K/uL (0.20-0.90); MONOCYTES PERCENT AUTO 16.4 % (3.3-12.6); NEUTROPHILS ABSOLUTE AUTO 2.42 K/uL (1.0-7.6); NEUTROPHILS PERCENT AUTO 50.7 % (40.0-78.1); PLATELET COUNT,PLT 231 K/uL (130-375); RED BLOOD CELL COUNT 5.09 M/uL (4.14-5.76); WHITE BLOOD CELL COUNT,WBC 4.8 K/uL (3.2-11.0)
[2024-09-10] MEDS ORDERED: Lactated Ringers 500 ML IV SCH (22:00)
[2024-09-10 22:08] LABS: A/G RATIO 0.8 (1.2-2.2); ALANINE AMINOTRANSFERASE,ALT 46 U/L (12-78); ALBUMIN 3.3 g/dL (3.4-5.0); ALKALINE PHOSPHATASE 96 U/L (46-116); ASPARTATE AMNIOTRANSFERASE,AST 37 U/L (15-37); BILIRUBIN TOTAL 0.4 mg/dL (0.2-1.0); BLOOD UREA NITROGEN,BUN 15 mg/dL (7-18); CALCIUM 8.3 mg/dL (8.5-10.1); CARBON DIOXIDE,CO2 28 mmol/L (21-32); CHLORIDE,CL 102 mmol/L (100-108); CREATININE 1.1 mg/dL (0.8-1.3); ESTIMATED GFR 78 mL/min (>60); GLUCOSE RANDOM 105 mg/dL (74-106); POTASSIUM,K 3.8 mmol/L (3.6-5.2); PROTEIN TOTAL,TP 7.4 g/dL (6.4-8.2); SODIUM,NA 138 mmol/L (140-148)
[2024-09-10 22:09] LABS: ANION GAP 11.8 mmol/L (5.0-14.0)
[2024-09-10] MEDS: Sodium Chloride 0.9% 10 ML Syringe FLUSH PRN (22:10)
[2024-09-10] MEDS: Lactated Ringers 500 ML IV ONE (22:12)
[2024-09-10] MEDS: Lactated Ringers 500 ML IV SCH (23:12)
[2024-09-10 23:56] LABS: APPEARANCE,URINE CLEAR (CLEAR); BILIRUBIN,URINE NEGATIVE (NEGATIVE); COLOR,URINE YELLOW (YELLOW); GLUCOSE,URINE NEGATIVE (NEGATIVE); KETONES,URINE NEGATIVE (NEGATIVE); LEUKOCYTE ESTERASE,URINE NEGATIVE (NEGATIVE); NITRITE,URINE NEGATIVE (NEGATIVE); OCCULT BLOOD,URINE MODERATE (NEGATIVE); PROTEIN,URINE 30 mg/dL (NEGATIVE); UROBILINOGEN,URINE 0.2 EU/dL (0.2-1.0)
[2024-09-11 03:29] VITALS: BP 108/71; PULSE 82
== END 2024-09-11 07:29 | disposition home or self-care (01) ==
LOC: JP.ED 19:57
DX: B34.9 Viral infection, unspecified (principal); I10 Essential (primary) hypertension; I25.2 Old myocardial infarction; E78.00 Pure hypercholesterolemia, unspecified; J45.909 Unspecified asthma, uncomplicated; Z86.16 Personal history of COVID-19; Z79.51 Long term (current) use of inhaled steroids; Z79.82 Long term (current) use of aspirin; Z79.899 Other long term (current) drug therapy
CPT/HCPCS: 36415; 80053; 81003; 85025; 86140; 87428-QW; 96360; 96361; 99284; 99284-25; J7120